=== PATIENT | female | born 1965 | race Caucasian/White ===

== ENCOUNTER 2018-05-07 17:09 | Inpatient (IN) ==
[2018-05-07] MEDS ORDERED: Acetaminophen 325 MG Tablet PO ONE (18:23)
[2018-05-07] MEDS ORDERED: Sod Chloride 0.9% Inj 800 ML IV.SIG SCH (18:30)
[2018-05-07] MEDS ORDERED: Sod Chloride 0.9% Inj 1,000 ML IV.SIG SCH (18:30)
[2018-05-07] MEDS ORDERED: Vancomycin Inj 1,150 MG in Sodium Chlor 0.9% Inj 250 ML IV.SIG STA (18:31)
[2018-05-07] MEDS ORDERED: Dexamethasone Inj 20 MG/5 ML Vial IV.PUSH STA (18:31)
[2018-05-07 19:10] LABS: Baso # (Auto) 0.1 th/mm3 (0.0-0.2); Baso % (Auto) 0.5 % (0.0-2.0); Eos # (Auto) 0.1 th/mm3 (0.0-0.4); Eos % (Auto) 0.7 % (0.0-4.0); Hematocrit 34.1 % (35.0-46.0); Hemoglobin 11.4 gm/dL (11.6-15.3); Lymph % (Auto) 16.8 % (9.0-44.0); Mean Corpuscular HGB Conc 33.5 % (32.0-36.0); Mean Corpuscular Volume 95.7 fL (80.0-100.0); Mono # (Auto) 1.9 th/mm3 (0.0-0.9); Mono % (Auto) 10.7 % (0.0-8.0); Neut # (Auto) 12.7 th/mm3 (1.8-7.7); Neut % (Auto) 71.3 % (16.0-70.0); Platelet Count 387 th/mm3 (150-450); Red Blood Count 3.57 mil/mm3 (4.00-5.30); Red Cell Distribution Width 12.6 % (11.6-17.2); White Blood Count 17.8 th/mm3 (4.0-11.0)
[2018-05-07 19:23] LABS: Alanine Aminotransferase 15 U/L (10-53); Albumin 3.1 g/dL (3.4-5.0); Anion Gap 10 meq/L (5-15); Aspartate Aminotransferase 17 U/L (15-37); Blood Urea Nitrogen 4 mg/dL (7-18); Calcium 9.4 mg/dL (8.5-10.1); Carbon Dioxide 25.3 meq/L (21.0-32.0); Chloride 101 meq/L (98-107); Glomerular Filtration Rate Greater Than 89 mL/min (>89); Glucose,Random 93 mg/dL (74-106); Potassium 4.6 meq/L (3.5-5.1); Sodium 136 meq/L (136-145)
[2018-05-07 19:30] LABS: Activated Partial Thrombo Time 25.4 sec (24.3-30.1); Prothrombin Time 10.6 sec (9.8-11.6)
[2018-05-07 19:32] LABS: Alkaline Phosphatase 67 U/L (45-117); Total Protein 7.1 g/dL (6.4-8.2)
--- NOTE | 2018-05-07 19:53 | XR ---
EXAM DATE: 05/07/2018 7:49 PM EDT AGE/SEX: 53 years / Female INDICATIONS: Cardiac disease. CLINICAL DATA: This is the patient's initial encounter. Patient reports that signs and symptoms have been present for 1 day and indicates a pain score of 0/10. MEDICAL/SURGICAL HISTORY: None. None. COMPARISON: No prior exams available for comparison. FINDINGS: A single AP view of the chest demonstrates the lungs to be symmetrically aerated without evidence of mass, infiltrate or effusion. The cardiomediastinal contours are unremarkable. Osseous structures a re intact. CONCLUSION: Negative examination. Electronically signed by: Francisco Hills MD 05/07/2018 7:52 PM EDT
--- NOTE | 2018-05-07 20:34 | CT ---
EXAM DATE: 05/07/2018 8:28 PM EDT AGE/SEX: 53 years / Female INDICATIONS: Altered mental status, having hallucinations. CLINICAL DATA: This is the patient's initial encounter. Patient reports that signs and symptoms have been present for 1 day and indicates a pain score of 0/10. MEDICAL/SURGICAL HISTORY: None. None. RADIATION DOSE: 56.35 CTDI (mGy) COMPARISON: No prior exams available for comparison. TECHNIQUE: Axial images of the head were acquired without contrast and after intravenous administrat ion of 70 ml Omnipaque 350 (iohexol) nonionic water-soluble contrast as a single exam dose. Using automated exposure control and adjustment of the mA and/or kV according to patient size, radiation do se was kept as low as reasonably achievable to obtain optimal diagnostic quality images. DICOM forma t image data is available electronically for review and comparison. FINDINGS: Cerebrum: The ventricles are normal for age. No evidence of midline shift, mass lesion, hemorrhage or acute infarction. No extraaxial fluid collections are seen. Posterior Fossa: Focal decreased attenuation involving the right cerebellar hemisphere is consistent with probable cerebellar infarct. The brainstem is intact. The 4th ventricle is midline. The cereb ellopontine angle is unremarkable. Extracranial: The visualized portion of the orbits is intact. Skull: The calvaria is intact. No evidence of skull fracture. Post Contrast: No abnormal areas of parenchymal or dural enhancement. No evidence of blood-brain ba rrier breakdown. CONCLUSION: 1. Focal decreased attenuation involving the right cerebellar hemisphere is consistent with probable cerebellar infarct. 2. No acute infarct, acute hemorrhage, midline shift or extra-axial fluid collections. Electronically signed by: Francisco Hills MD 05/07/2018 8:33 PM EDT
[2018-05-07] MEDS ORDERED: SODIUM CHLOR 0.9% IV.SIG ONE (20:50)
[2018-05-07] MEDS ORDERED: ACYCLOVIR IV.SIG ONE (20:50)
--- NOTE | 2018-05-07 20:54 | ED ---
HPI General Chief Complaint: Psychiatric Symptoms Stated Complaint: Psych eval Time Seen by Provider: 05/07/18 18:01 Source: patient, family and other Mode of arrival: ambulatory Limitations: altered mental status History of Present Illness HPI narrative: Patient is a 53-year-old female, previously healthy who presents with complaint of acute psychosis. Family states that for approximately the last week she has not been herself and has been acting manic. She was admitted to an outside hospital where she had a noncontrast CT of her head that was unremarkable and blood work that showed a white blood cell count of 16. Family states that she was discharged home and told to come here to be seen by psychiatry. Family is adamant that she does not have any previous psychiatric history other than depression and anxiety. She has not had any over-the- counter cold medicines nor other herbal supplements. Patient denies any pain or discomfort. complaint: altered mental status Onset (ago): day(s) Timing confirmed by: spouse Severity: moderate Consistency of symptoms: getting worse Associated symptoms: denies other symptoms Related Data Home Medications Medication Instructions Recorded Confirmed alprazolam [Xanax] 1 mg PO BID 05/07/18 05/07/18 lactulose 10 g PO QID 05/07/18 05/07/18 risperidone 0.25 mg PO BID 05/07/18 05/07/18 Allergies Allergy/AdvReac Type Severity Reaction Status Date / Time No Known Allergies Allergy Unverified 05/07/18 18:13 Review of Systems ROS: all other systems reviewed are negative [facility] Social History Social History Recent Travel in [facility] within the Last 8 Weeks: No Recent Out of Country Travel within the Last 8 Weeks: No Exam Narrative Exam Narrative: GENERAL: Middle-aged female singing "Amazing Ronel" loudly in the room SKIN: Focused skin assessment warm/dry. No rashes. HEAD: Atraumatic. Normocephalic. EYES: Pupils equal and round. No scleral icterus. No injection or drainage. ENT: No nasal bleeding or discharge. Mucous membranes pink and moist. NECK: Trachea midline. No JVD. CARDIOVASCULAR: Tachycardic. No murmur appreciated. Intact and equal peripheral pulses RESPIRATORY: No accessory muscle use. Clear to auscultation. Breath sounds equal bilaterally. GASTROINTESTINAL: Abdomen soft, non-tender, nondistended. Hepatic and splenic margins not palpable. MUSCULOSKELETAL: No obvious deformities. No clubbing. No cyanosis. No edema. NEUROLOGICAL: Awake and alert but confused. No obvious cranial nerve deficits. Moving all 4 extremities well. Generalized tremor. Normal speech. PSYCHIATRIC: Anxious and altered, intermittently agitated Course Initial Documented Vital Signs Temperature 101.1 F H 05/07/18 17:12 Pulse Rate 126 H 05/07/18 17:12 Respiratory Rate 18 05/07/18 17:12 Blood Pressure 125/89 05/07/18 17:12 Pulse Oximetry 96 05/07/18 17:12 Last Documented Vital Signs Temperature 101.1 F H 05/07/18 17:12 Pulse Rate 90 05/07/18 20:28 Respiratory Rate 18 05/07/18 18:15 Blood Pressure 164/74 H 05/07/18 18:15 Pulse Oximetry 97 05/07/18 20:28 Medical Decision Making MDM Narrative Medical decision making narrative: Patient is a 53-year-old female who presents with complaint of acute psychosis. She is tachycardic and febrile on arrival at which time sepsis bundle was initiated and empiric antibiotics to cover for meningo-encephalitis were given. She was given Ativan after which her tremor improved. Labs revealed a leukocytosis and slightly elevated lactate. CT of the head shows a cerebellar lesion with another possible lesion in the fronto- parietal region. As she had lesions on her CT, LP was not done in the ED. I spoke with Dr Malik, etcher [employer] fabricating supervisor, whom agreed to admission and stated he would perform an LP in addition to continuing her workup and management. Medical Screen Exam Complete: Yes Emergency Medical Condition: Yes Differential Diagnosis Differential Diagnosis: Differential diagnosis includes but is not limited to encephalitis, urinary tract infection, toxic ingestion. Medical Records Medical records reviewed: Yes I reviewed the patient's medical records. Lab Data Lab results reviewed: Yes I reviewed the patient's lab results. Lab results narrative: Labs remarkable for leukocytosis and slightly elevated lactate. Result diagrams: 05/07/18 18:48 05/07/18 18:48 Lab Results 05/07/18 05/07/18 05/07/18 Range/Units 18:00 18:48 18:48 WBC (4.0-11.0) th/mm3 RBC (4.00-5.30) mil/mm3 Hgb (11.6-15.3) gm/dL Hct (35.0-46.0) % MCV (80.0-100.0) fL MCH (27.0-34.0) pg MCHC (32.0-36.0) % RDW (11.6-17.2) % Plt Count (150-450) th/mm3 MPV (7.0-11.0) fL Neut % (Auto) (16.0-70.0) % Lymph % (Auto) (9.0-44.0) % [place] % (Auto) (0.0-8.0) % Eos % (Auto) (0.0-4.0) % Baso % (Auto) (0.0-2.0) % Neut # (Auto) (1.8-7.7) th/mm3 Lymph # (Auto) (1.0-4.8) th/mm3 [place] # (Auto) (0.0-0.9) th/mm3 Eos # (Auto) (0.0-0.4) th/mm3 Baso # (Auto) (0.0-0.2) th/mm3 WBC Differential Differential Comment PT 10.6 (9.8-11.6) sec INR 1.0 Ratio APTT 25.4 (24.3-30.1) sec Sodium (136-145) meq/L Potassium (3.5-5.1) meq/L Chloride (98-107) meq/L Carbon Dioxide (21.0-32.0) meq/L Anion Gap (5-15) meq/L BUN (7-18) mg/dL Creatinine (0.50-1.00) mg/dL Estimated GFR (>89) mL/min Random Glucose (74-106) mg/dL Lactic Acid 2.5 H (0.4-2.0) mmol/L Calcium (8.5-10.1) mg/dL Total Bilirubin (0.2-1.0) mg/dL AST (15-37) U/L ALT (10-53) U/L Alkaline Phosphatase (45-117) U/L Ammonia (11-32) mcmol/L Troponin I Cancelled Total Protein (6.4-8.2) g/dL Albumin (3.4-5.0) g/dL Vitamin B12 (193-986) pg/mL Folate (3.1-17.5) ng/mL TSH Cancelled Urine Color (Yellw/Straw) Urine Clarity (Clear) Urine pH (5.0-8.5) Ur Specific [place] (1.002-1.035) Urine Protein (Neg-Trace) mg/dL Urine Glucose (UA) (Negative) mg/dL Urine Ketones (Negative) mg/dL Urine Occult Blood (Negative) Urine Nitrate (Negative) Urine Bilirubin (Negative) Urine Urobilinogen (Less than 2) mg/dL Ur Leukocyte Esterase (Negative) Urine RBC (0-3) /hpf Urine WBC (0-5) /hpf Micro UA Comment Ur Microscopic Review Urine Culture Comments Salicylates (2.8-20.0) mg/dL Serum Alcohol Cancelled 05/07/18 05/07/18 05/07/18 Range/Units 18:48 18:48 18:48 WBC 17.8 H (4.0-11.0) th/mm3 RBC 3.57 L (4.00-5.30) mil/mm3 Hgb 11.4 L (11.6-15.3) gm/dL Hct 34.1 L (35.0-46.0) % MCV 95.7 (80.0-100.0) fL MCH 32.0 (27.0-34.0) pg MCHC 33.5 (32.0-36.0) % RDW 12.6 (11.6-17.2) % Plt Count 387 (150-450) th/mm3 MPV 7.0 (7.0-11.0) fL Neut % (Auto) 71.3 H (16.0-70.0) % Lymph % (Auto) 16.8 (9.0-44.0) % [place] % (Auto) 10.7 H (0.0-8.0) % Eos % (Auto) 0.7 (0.0-4.0) % Baso % (Auto) 0.5 (0.0-2.0) % Neut # (Auto) 12.7 H (1.8-7.7) th/mm3 Lymph # (Auto) 3.0 (1.0-4.8) th/mm3 [place] # (Auto) 1.9 H (0.0-0.9) th/mm3 Eos # (Auto) 0.1 (0.0-0.4) th/mm3 Baso # (Auto) 0.1 (0.0-0.2) th/mm3 WBC Differential . Differential Comment Auto diff final PT (9.8-11.6) sec INR Ratio APTT (24.3-30.1) sec Sodium (136-145) meq/L Potassium (3.5-5.1) meq/L Chloride (98-107) meq/L Carbon Dioxide (21.0-32.0) meq/L Anion Gap (5-15) meq/L BUN (7-18) mg/dL Creatinine (0.50-1.00) mg/dL Estimated GFR (>89) mL/min Random Glucose (74-106) mg/dL Lactic Acid (0.4-2.0) mmol/L Calcium (8.5-10.1) mg/dL Total Bilirubin (0.2-1.0) mg/dL AST (15-37) U/L ALT (10-53) U/L Alkaline Phosphatase (45-117) U/L Ammonia 17 (11-32) mcmol/L Troponin I Total Protein (6.4-8.2) g/dL Albumin (3.4-5.0) g/dL Vitamin B12 (193-986) pg/mL Folate (3.1-17.5) ng/mL TSH Urine Color (Yellw/Straw) Urine Clarity (Clear) Urine pH (5.0-8.5) Ur Specific [place] (1.002-1.035) Urine Protein (Neg-Trace) mg/dL Urine Glucose (UA) (Negative) mg/dL Urine Ketones (Negative) mg/dL Urine Occult Blood (Negative) Urine Nitrate (Negative) Urine Bilirubin (Negative) Urine Urobilinogen (Less than 2) mg/dL Ur Leukocyte Esterase (Negative) Urine RBC (0-3) /hpf Urine WBC (0-5) /hpf Micro UA Comment Ur Microscopic Review Urine Culture Comments Salicylates Less than 1.7 L (2.8-20.0) mg/dL Serum Alcohol 05/07/18 05/07/18 05/07/18 Range/Units 18:48 18:48 21:22 WBC (4.0-11.0) th/mm3 RBC (4.00-5.30) mil/mm3 Hgb (11.6-15.3) gm/dL Hct (35.0-46.0) % MCV (80.0-100.0) fL MCH (27.0-34.0) pg MCHC (32.0-36.0) % RDW (11.6-17.2) % Plt Count (150-450) th/mm3 MPV (7.0-11.0) fL Neut % (Auto) (16.0-70.0) % Lymph % (Auto) (9.0-44.0) % [place] % (Auto) (0.0-8.0) % Eos % (Auto) (0.0-4.0) % Baso % (Auto) (0.0-2.0) % Neut # (Auto) (1.8-7.7) th/mm3 Lymph # (Auto) (1.0-4.8) th/mm3 [place] # (Auto) (0.0-0.9) th/mm3 Eos # (Auto) (0.0-0.4) th/mm3 Baso # (Auto) (0.0-0.2) th/mm3 WBC Differential Differential Comment PT (9.8-11.6) sec INR Ratio APTT (24.3-30.1) sec Sodium 136 (136-145) meq/L Potassium 4.6 (3.5-5.1) meq/L Chloride 101 (98-107) meq/L Carbon Dioxide 25.3 (21.0-32.0) meq/L Anion Gap 10 (5-15) meq/L BUN 4 L (7-18) mg/dL Creatinine 0.43 L (0.50-1.00) mg/dL Estimated GFR Greater than 89 (>89) mL/min Random Glucose 93 (74-106) mg/dL Lactic Acid (0.4-2.0) mmol/L Calcium 9.4 (8.5-10.1) mg/dL Total Bilirubin 0.3 (0.2-1.0) mg/dL AST 17 (15-37) U/L ALT 15 (10-53) U/L Alkaline Phosphatase 67 (45-117) U/L Ammonia (11-32) mcmol/L Troponin I Less than 0.02 L Total Protein 7.1 (6.4-8.2) g/dL Albumin 3.1 L (3.4-5.0) g/dL Vitamin B12 239 (193-986) pg/mL Folate 15.4 (3.1-17.5) ng/mL TSH 1.700 Urine Color Yellow (Yellw/Straw) Urine Clarity Clear (Clear) Urine pH 6.0 (5.0-8.5) Ur Specific [place] Greater than 1.060 H (1.002-1.035) Urine Protein Negative (Neg-Trace) mg/dL Urine Glucose (UA) Negative (Negative) mg/dL Urine Ketones Negative (Negative) mg/dL Urine Occult Blood Negative (Negative) Urine Nitrate Negative (Negative) Urine Bilirubin Negative (Negative) Urine Urobilinogen Less than 2 (Less than 2) mg/dL Ur Leukocyte Esterase Negative (Negative) Urine RBC Less than 1 (0-3) /hpf Urine WBC 1 (0-5) /hpf Micro UA Comment Cath-culture not ind Ur Microscopic Review Not Reportable Urine Culture Comments Cath-cult not ind Salicylates (2.8-20.0) mg/dL Serum Alcohol Less than 3 05/07/18 Range/Units 22:09 WBC (4.0-11.0) th/mm3 RBC (4.00-5.30) mil/mm3 Hgb (11.6-15.3) gm/dL Hct (35.0-46.0) % MCV (80.0-100.0) fL MCH (27.0-34.0) pg MCHC (32.0-36.0) % RDW (11.6-17.2) % Plt Count (150-450) th/mm3 MPV (7.0-11.0) fL Neut % (Auto) (16.0-70.0) % Lymph % (Auto) (9.0-44.0) % [place] % (Auto) (0.0-8.0) % Eos % (Auto) (0.0-4.0) % Baso % (Auto) (0.0-2.0) % Neut # (Auto) (1.8-7.7) th/mm3 Lymph # (Auto) (1.0-4.8) th/mm3 [place] # (Auto) (0.0-0.9) th/mm3 Eos # (Auto) (0.0-0.4) th/mm3 Baso # (Auto) (0.0-0.2) th/mm3 WBC Differential Differential Comment PT (9.8-11.6) sec INR Ratio APTT (24.3-30.1) sec Sodium (136-145) meq/L Potassium (3.5-5.1) meq/L Chloride (98-107) meq/L Carbon Dioxide (21.0-32.0) meq/L Anion Gap (5-15) meq/L BUN (7-18) mg/dL Creatinine (0.50-1.00) mg/dL Estimated GFR (>89) mL/min Random Glucose (74-106) mg/dL Lactic Acid 0.5 (0.4-2.0) mmol/L Calcium (8.5-10.1) mg/dL Total Bilirubin (0.2-1.0) mg/dL AST (15-37) U/L ALT (10-53) U/L Alkaline Phosphatase (45-117) U/L Ammonia (11-32) mcmol/L Troponin I Total Protein (6.4-8.2) g/dL Albumin (3.4-5.0) g/dL Vitamin B12 (193-986) pg/mL Folate (3.1-17.5) ng/mL TSH Urine Color (Yellw/Straw) Urine Clarity (Clear) Urine pH (5.0-8.5) Ur Specific [place] (1.002-1.035) Urine Protein (Neg-Trace) mg/dL Urine Glucose (UA) (Negative) mg/dL Urine Ketones (Negative) mg/dL Urine Occult Blood (Negative) Urine Nitrate (Negative) Urine Bilirubin (Negative) Urine Urobilinogen (Less than 2) mg/dL Ur Leukocyte Esterase (Negative) Urine RBC (0-3) /hpf Urine WBC (0-5) /hpf Micro UA Comment Ur Microscopic Review Urine Culture Comments Salicylates (2.8-20.0) mg/dL Serum Alcohol Imaging Data Attestation: I personally reviewed and interpreted this imaging study as follows : My impression: Cerebellar lesion present. Radiologist's impression: Chest X-Ray 05/07/18 18:18 CONCLUSION: Negative examination. Head CT 05/07/18 18:18 CONCLUSION: 1. Focal decreased attenuation involving the right cerebellar hemisphere is consistent with probable cerebellar infarct. 2. No acute infarct, acute hemorrhage, midline shift or extra-axial fluid collections. Discharge Plan Discharge Disposition Patient Disposition: 30 Still Patient Discharge Condition Condition: Stable Discharge Details Diagnosis: Acute alteration in mental status, Sepsis Physicians Team ED Provider: Nenita Stanton Primary Care Provider: UNKNOWN, Rxs /Orders / Referrals /Forms Prescriptions: No Action risperidone 0.25 mg Tablet 0.25 mg PO BID RF: 0 lactulose 10 gram/15 mL Solution 10 g PO QID RF: 0 alprazolam [Xanax] 1 mg Tablet 1 mg PO BID RF: 0 Discharge Interventions Interventions: Vital Signs Last Done: 05/07/18 18:15 Status ED Status: With Doctor
[2018-05-07] MEDS ORDERED: Magnesium Sulfate Inj 2 GM in Sodium Chlor 0.9% Inj 96 ML IV.SIG PRN (21:31)
[2018-05-07] MEDS ORDERED: Potassium Phosphate 500 MG Soluble Tablet PO PRN ×2 (21:31)
[2018-05-07] MEDS ORDERED: Sodium Phosphate Inj 30 MMOL in Sodium Chlor 0.9% Inj 250 ML IV.SIG PRN (21:31)
[2018-05-07] MEDS ORDERED: Potassium Phosphate Inj 30 MMOL in Sodium Chlor 0.9% Inj 250 ML IV.SIG PRN (21:31)
[2018-05-07] MEDS ORDERED: Potassium Chloride 25 MEQ Effervescent Tablet PO PRN (21:31)
[2018-05-07] MEDS ORDERED: Bisacodyl 10 MG Supp RECTAL PRN (21:31)
[2018-05-07] MEDS ORDERED: Magnesium Sulfate Inj 4 GM in Sodium Chlor 0.9% Inj 92 ML IV.SIG PRN (21:31)
[2018-05-07] MEDS ORDERED: Potassium Chlor 40 mEq Premix 40 MEQ/100 ML PIGGYBACK IV.SIG PRN ×2 (21:31)
[2018-05-07] MEDS ORDERED: Magnesium Oxide 400 MG Tablet PO PRN (21:31)
[2018-05-07] MEDS ORDERED: Potassium Chlor 20 mEq Premix 20 MEQ/100 ML PIGGYBACK IV.SIG PRN ×2 (21:31)
[2018-05-07] MEDS ORDERED: Sod Chloride 0.9% Inj 1,000 ML IV.CONT SCH (21:45)
[2018-05-07 22:19] LABS: Bilirubin,Urine Negative (Negative); Clarity,Urine Clear (Clear); Color,Urine Yellow (Yellw/Straw); Glucose,Urine (UA) Negative (Negative); Leukocyte Esterase,Urine Negative (Negative); Nitrite,Urine Negative (Negative)
[2018-05-07 22:46] LABS: Folate 15.4 ng/mL (3.1-17.5)
[2018-05-07] MEDS ORDERED: Gadobutrol PF 7.5 MMOL/7.5 ML Vial (for RAD) IV.SIG ONE (23:05)
--- NOTE | 2018-05-07 23:37 | P.HPCC ---
History of Present Illness Service: Critical Care Medicine Primary Care Physician: UNKNOWN Chief Complaint: altered mentation History of Present Illness: This is a 53-year-old female who has a past medical history of mild depression for which she took Wellbutrin and chronic daily marijuana use. She presents with approximately 2 weeks of sudden onset acute altered mentation, delusional thinking. Patient is very acutely altered and a reliable history is not obtainable from her. Her and daughter are at bedside and have been taking care of her over the last 2 weeks and have a very detailed history of present illness. According to her family, the patient has not had any changes to her medical history, has been healthy and otherwise active. They do state that she had EtOH dependence but has been sober for 10 years now. They state that approximately 2 weeks ago she came home from an AA meeting and suddenly decided that she would stop smoking marijuana and tobacco. At the same time, she began to have delusional thoughts, primarily of a confucianism nature. She states things like "the devil is in my mouth ". According to her family, she has been stating things like her neighbors of the devil. She has significant echolalia and is singing song lyrics, all of which have confucianism references. Family has also noticed that she has not slept for days on end, and goes routinely 36 hours without sleep, again over the last 2 weeks. She was recently hospitalized last week and outside hospital for dehydration and at that time outside hospital CAT scan of the head was negative for acute illness. The family states they diagnosed her with an acute onset psychiatric illness, started on risperidone, and suggests she come to [facility] for admission to an inpatient psychiatric unit. The family has lab reports from outside hospital suggesting that she had a elevated white count and a fever at that time. In our emergency department, she also has a white count of 16,000 and she is febrile to 38.4C. Tox screen is negative. CT head at our facility demonstrates small hypodensity in the right cerebellum. MRI is negative except for a small widening of the cerebellar folds in the right cerebellum. Systems from the patient is essentially unobtainable due to her severe altered mentation. The patient has not had any international travel in the last 6-12 months. She has had small 2-3 day trips out of the area to the [place], [place], and most recently 3 days in [place] approximately a week ago. No contact with wild life. No hunting trips. [place] is significant amount of mosquitoes this time of year. In addition, the states that [place], although the patient does not have any direct contact with the horses. The patient's family history is only positive for CVA: Her grandmother at the age of 89, and a sister at the age of 60. There is no family history of mental illness. She does have a sister who of drug overdose in her 50s. No one in her family is ever been hospitalized for mental illness. She is not of Mediterranean descent. She is of [place] descent. She has no high risk sexual behaviors. She has been monogamous with her for 15 years. She has never used intravenous drugs. No tattoos. Inpatient Certification: I certify that the inpatient services were ordered in accordance with Medicare regulations governing the order. This includes certification that hospital inpatient services are reasonable and necessary and in the case of services not specified as inpatient-only under 42 CFR 419.22(n), that they are appropriately provided as inpatient services in accordance to with the 2-midnight benchmark under 43 CFR 412.3(e) Estimated Total Length of Stay (Days): 7 Plans for Post Hospital Care: Not yet determined Review of Systems unobtainable due to mental condition PMFSH - History History Provided By: Family Member - Medical / Surgical Hx Neg / Unobtainable Medical Problems Denied: Unable to Obtain Surgical History: Unable to Obtain - Social History I have reviewed the patient's Social History: Yes - Travel History Recent Travel in the [place] Within the Last 8 Weeks: No Recent Travel Out of the Country Within the Last 8 Weeks: No Medications and Allergies Active Medications: Active Medications Albuterol (Duoneb Neb (Prn)) 1 ampul NEB Q2HR NEB PRN PRN Reason: WHEEZING Bisacodyl (Dulcolax Supp) 10 mg RECTAL DAILY PRN PRN Reason: if no BM in last 24h Chlorhexidine Gluconate (Chlorhexidine 2% Cloth) 3 pack TOPICAL DAILY@0400 PRN PRN Reason: Extra cloth needed Stop: 05/13/18 03:59 Chlorhexidine Gluconate (Chlorhexidine 2% Cloth) 3 pack TOPICAL DAILY@0400 EUGENIA Stop: 05/13/18 03:59 Dextrose (D50w Syringe) 50 ml IV.PUSH UNSCH PRN PRN Reason: PER HYPOGLYCEMIA PROTOCOL Famotidine (Pepcid) 20 mg PO BID EUGENIA Glucagon (Glucagon Inj) 1 mg IM ONCE PRN PRN Reason: blood sugar < 60, no iv access Sodium Chloride (Ns Inj) 800 mls @ 0 mls/hr IV.SIG .Q0M EUGENIA Last Infusion: 05/07/18 20:37 Dose: Infused Sodium Chloride (Ns Inj) 1,000 mls @ 0 mls/hr IV.SIG BOLUS EUGENIA Last Admin: 05/07/18 21:40 Dose: 1,000 mls/hr Magnesium Sulfate Inj 4 gm/ (Sodium Chloride) 100 mls @ 50 mls/hr IV.SIG UNSCH PRN PRN Reason: For Magnesium 0.9 - 1.1 mg/dL Magnesium Sulfate Inj 2 gm/ (Sodium Chloride) 100 mls @ 50 mls/hr IV.SIG UNSCH PRN PRN Reason: For Magnesium 1.2 - 1.6 mg/dL Sodium Chloride (Ns Inj) 1,000 mls @ 84 mls/hr IV.CONT .[id number] [facility] Potassium Chloride (Kcl 20 Meq Premix Inj) 20 meq in 100 mls @ 50 mls/hr IV.SIG Q2H PRN PRN Reason: For Potassium 3.3 - 3.5 mEq/L Potassium Chloride (Kcl 40 Meq Premix Inj) 40 meq in 100 mls @ 25 mls/hr IV.SIG UNSCH PRN PRN Reason: For Potassium 3.3 - 3.5 mEq/L Potassium Chloride (Kcl 20 Meq Premix Inj) 20 meq in 100 mls @ 50 mls/hr IV.SIG Q2H PRN PRN Reason: For Potassium 2.8 - 3.2 mEq/L Potassium Phosphate 30 mmol/ (Sodium Chloride) 260 mls @ 42 mls/hr IV.SIG UNSCH PRN PRN Reason: SEE LABEL COMMENTS Potassium Chloride (Kcl 40 Meq Premix Inj) 40 meq in 100 mls @ 25 mls/hr IV.SIG Q2H PRN PRN Reason: For Potassium 2.8 - 3.2 mEq/L Sodium Phosphate 30 mmol/ (Sodium Chloride) 260 mls @ 42 mls/hr IV.SIG UNSCH PRN PRN Reason: For Phosphorus < 2.5 mg/dL Insulin Human Regular (Novolin R Inj) 1 units SQ Q6HR EUGENIA; Protocol Lactulose (Lactulose Liq) 30 ml PO BID EUGENIA Magnesium Oxide (Mag-Ox) 800 mg PO UNSCH PRN PRN Reason: For Magnesium 1.2 - 1.6 mg/dL Ondansetron HCl (Zofran Inj) 4 mg IV.PUSH Q6H PRN PRN Reason: NAUSEA OR VOMITING Polyethylene Glycol (Miralax) 17 gm PO BID EUGENIA Potassium Bicarb/Potassium Chloride (K-Lyte Cl Eff) 50 meq PO UNSCH PRN PRN Reason: For Potassium 3.3 - 3.5 mEq/L Potassium Phosphate (K-Phos Original) 2,000 mg PO Q4H PRN PRN Reason: Phosphorus Less Than 2.5 mg/dL Potassium Phosphate (K-Phos Original) 2,000 mg PO UNSCH PRN PRN Reason: SEE LABEL COMMENTS Senna/Docusate Sodium (Catrachita-Colace) 1 tab PO BID [facility] Sodium Chloride (Ns Flush) 2 ml IV.FLUSH PRN PRN PRN Reason: FLUSH AFTER USING IV ACCESS Sodium Chloride (Ns Flush) 2 ml IV.FLUSH UNSCH PRN PRN Reason: FLUSH AFTER USING IV ACCESS Allergies Allergy/AdvReac Type Severity Reaction Status Date / Time No Known Allergies Allergy Unverified 05/07/18 18:13 Home Medications Medication Instructions Recorded Confirmed Type alprazolam [Xanax] 1 mg PO BID 05/07/18 05/07/18 History lactulose 10 g PO QID 05/07/18 05/07/18 History risperidone 0.25 mg PO BID 05/07/18 05/07/18 History Results - Labs CBC & Chem 7: 05/07/18 18:48 05/07/18 18:48 Labs: Short CBC 05/07/18 Range/Units 18:48 WBC 17.8 H (4.0-11.0) th/mm3 Hgb 11.4 L (11.6-15.3) gm/dL Hct 34.1 L (35.0-46.0) % Plt Count 387 (150-450) th/mm3 BMP 05/07/18 18:48 Sodium 136 Potassium 4.6 Chloride 101 Carbon Dioxide 25.3 BUN 4 L Creatinine 0.43 L Calcium 9.4 Cardiac Enzymes 05/07/18 05/07/18 Range/Units 18:48 18:48 Troponin I Cancelled Less than 0.02 L Liver Function 05/07/18 Range/Units 18:48 Total Bilirubin 0.3 (0.2-1.0) mg/dL AST 17 (15-37) U/L ALT 15 (10-53) U/L Alkaline Phosphatase 67 (45-117) U/L Albumin 3.1 L (3.4-5.0) g/dL Urine 05/07/18 Range/Units 21:22 Urine Color Yellow (Yellw/Straw) Urine Clarity Clear (Clear) Urine pH 6.0 (5.0-8.5) Ur Specific [place] Greater than 1.060 H (1.002-1.035) Urine Protein Negative (Neg-Trace) mg/dL Urine Glucose (UA) Negative (Negative) mg/dL - Imaging Impressions Chest X-Ray 05/07/18 18:18 CONCLUSION: Negative examination. Head CT 05/07/18 18:18 CONCLUSION: 1. Focal decreased attenuation involving the right cerebellar hemisphere is consistent with probable cerebellar infarct. 2. No acute infarct, acute hemorrhage, midline shift or extra-axial fluid collections. Exam Vital signs: Vital Signs 05/07/18 17:12 05/07/18 18:15 05/07/18 20:28 Temperature 38.4 C H Pulse Rate 126 H 99 H 90 Respiratory Rate 18 18 Blood Pressure 125/89 164/74 H Pulse Oximetry 96 97 97 05/07/18 23:34 Temperature Pulse Rate 97 H Respiratory Rate 18 Blood Pressure 120/77 Pulse Oximetry Intake & Output 05/07/18 05/07/18 05/08/18 06:59 18:59 06:59 Intake Total 1000 / 1000 Balance 1000 / 1000 Weight 46.72 kg Intake: IV 1000 / 1000 Ampicillin Inj 2,000 MG In NS 100 / 100 Inj 100 ML @ 400 mls/hr IV.SIG ONCE ONE Rx#:[id number] NS Inj 800 ML @ Wide Open IV. 800 / 800 SIG .Q0M [facility] Rx#:[id number] Rocephin Inj 2,000 MG In NS Inj 100 / 100 100 ML @ 200 mls/hr IV.SIG ONCE ONE Rx#:[id number] Narrative: GENERAL: Middle-aged appearing female, lying in bed, at times agitated, altered HEENT: Normocephalic. Atraumatic. Pupils 3 mm, equal, round, reactive, conjugate. Mucous membranes are moist NECK: Trachea is midline. There is no JVD. CHEST: Equal chest rise. Room air. CARDIOVASCULAR: Normal rate, regular rhythm. Sinus. ABDOMEN: Soft, nontender, nondistended. No guarding. MUSCULOSKELETAL: Pulses 2+. No peripheral edema. NEUROLOGICAL: GCS of 14. Patient is awake. She is oriented to person and place. She is CAM -. She has significant delusional thinking, particularly with regard to confucianism themes. She is singing "the devil and down to [place] ". She has significant echolalia. She perseverates over handwashing and wearing gloves. She is moving all 4 extremities. She has musculoskeletal strength 5/5 in all 4 extremities. Sensation is grossly intact. Cranial nerves II through XII are grossly intact. Caprini VTE Risk Assessment Caprini VTE Risk Assessment: Moderate/High Risk (score >= 2) Caprini Risk Assessment Model: Point Value = 1 Point Value = 2 Point Value = 3 Point Value = 5 Age 41-60 Minor surgery BMI > 25 kg/m2 Swollen legs Varicose veins or History of unexplained or recurrent spontaneous Oral contraceptives or hormone replacement Sepsis (< 1 month) Serious lung disease, including pneumonia (< 1 month) Abnormal pulmonary function Acute myocardial infarction Congestive heart failure (< 1 month) History of inflammatory bowel disease Medical patient at bed rest Age 61-74 Arthroscopic surgery Major open surgery (> 45 min) Laparoscopic surgery (> 45 min) Malignancy Confined to bed (> 72 hours) Immobilizing plaster cast Central venous access Age >= 75 History of VTE Family history of VTE Factor V Leiden Prothrombin [id number] Lupus anticoagulant Anticardiolipin antibodies Elevated serum homocysteine Heparin-induced thrombocytopenia Other congenital or acquired thrombophilia Stroke (< 1 month) Elective arthroplasty Hip, pelvis, or leg fracture Acute spinal cord injury (< 1 month) Prophylaxis Regimen: Total Risk Factor Score Risk Level Prophylaxis Regimen 0-1 Low Early ambulation 2 Moderate Order ONE of the following: *Sequential Compression Device (SCD) *Heparin 5000 units SQ BID 3-4 Higher Order ONE of the following medications: *Heparin 5000 units SQ TID *Enoxaparin/Lovenox 40 mg SQ daily (WT < 150 kg, CrCl > 30 mL/min) *Enoxaparin/Lovenox 30 mg SQ daily (WT < 150 kg, CrCl > 10-29 mL/min) *Enoxaparin/Lovenox 30 mg SQ BID (WT < 150 kg, CrCl > 30 mL/min) AND/OR *Sequential Compression Device (SCD) 5 or more Highest Order ONE of the following medications: *Heparin 5000 units SQ TID (Preferred with Epidurals) *Enoxaparin/Lovenox 40 mg SQ daily (WT < 150 kg, CrCl > 30 mL/min) *Enoxaparin/Lovenox 30 mg SQ daily (WT < 150 kg, CrCl > 10-29 mL/min) *Enoxaparin/Lovenox 30 mg SQ BID (WT < 150 kg, CrCl > 30 mL/min) AND *Sequential Compression Device (SCD) Assessment and Plan - Assessment and Plan Plan: Assessment: This is a 53-year-old female with no significant past medical history, and particularly no past medical history suggestive of significant mental illness who presents with a two-week history of acute altered mentation, psychosis, delusional thinking. Clinically this appears together with fever and leukocytosis to be an acute encephalitis. Most common candidates within the differential would be HSV encephalitis, West Nile encephalitis, eastern equine encephalitis, or another viral encephalitis. This does not appear to be an acute bacterial meningitis, although we will cover her empirically and follow -up CSF cultures. Will obtain lumbar puncture and CSF. The patient is also in the right age group and presents in the right time course to have an NMDA receptor encephalitis, and although rare, this would need to be considered in the differential. Given the patient's significant smoking history, paraneoplastic encephalitis from lung cancer is also a rare possibility. The patient is very clearly ill at this time and will need admission to intensive care unit for close monitoring. Highly complex and she may well continue decompensate from a neurologic standpoint. Acute encephalopathy Acute encephalitis Acute psychosis Leukocytosis Fever Agitated Delirium Plan: admit to ICU frequent neuro checks ativan prn for agitation Lumbar puncture vancomycin, rocephin, acyclovir. will add ampicillin if cell count suggests bacterial source. NS mivf strict i/o's advance diet as tolerated EEG daily cbc, bmp Work up: blood cultures: pending CSF cultures: pending CSF cell count: pending CSF Gram stain: pending HSV 1/2: pending VZV: pending HIV: negative Cryptococcus: pending Toxoplasma: pending CSF VDRL: pending anti-NMDA receptor Ab: pending paraneoplastic encephalitis panel: pending MRI: right cerebellar widening of folds, otherwise negative CT brain: small hypotensity right cerebellum EEG: pending enterovirus panel: pending
--- NOTE | 2018-05-07 23:39 | MR ---
EXAM DATE: 05/07/2018 11:23 PM EDT AGE/SEX: 53 years / Female INDICATIONS: Encephalitis. Altered mental status. CLINICAL DATA: This is the patient's initial encounter. Patient reports that signs and symptoms have been present for 1 week and indicates a pain score of 5/10. MEDICAL/SURGICAL HISTORY: None. Tubal ligation. COMPARISON: [facility] [place], [place] HEAD W & W/O CONTRAST, 05/07/2018. . TECHNIQUE: Multiplanar, multisequence examination of the brain was performed without and with 4.50 ml Gadavist (gadobutrol) contrast as a single exam dose. Rapid acquisition sequences were employed due to patient motion. FINDINGS: Cerebrum: The ventricles are normal for age. No evidence of midline shift, mass lesion, hemorrhage or acute infarction. No extraaxial fluid collections are seen. The pituitary gland and suprasellar cistern are normal in configuration. White Matter: No significant signal abnormalities are seen in the white matter. Posterior Fossa: The cerebellum and brainstem are intact. There is widening of the interhemispheric fissure in the right lateral cerebellar hemisphere which correlates with the hypodensity seen on CT s can. This could represent an old infarction or focal atrophy. The 4th ventricle is midline. The cere bellopontine angle is unremarkable. The cerebellar tonsils are normal in position. Diffusion Imaging: No focal areas of restricted diffusion are seen. No evidence of acute infarction . Extracranial: The visualized portions of the orbits and paranasal sinuses are unremarkable. Post Contrast: No abnormal areas of parenchymal or dural enhancement. No evidence of blood-brain ba rrier breakdown. CONCLUSION: 1. No acute findings in the brain. No abnormal areas of contrast enhancement and no evidence of acut e infarction. 2. Focal atrophy in the right cerebellum with widening of the interhemispheric fissure. Electronically signed by: Dewayne Sahni MD 05/07/2018 11:38 PM EDT
[2018-05-08] MEDS ORDERED: Midazolam Inj 5 MG/ML 1 ML Vial ONE ×2 (00:05→00:12)
[2018-05-08] MEDS ORDERED: Vancomycin Consult Pharmacy OTHER PRN (00:39)
--- NOTE | 2018-05-08 01:20 | P.PCN ---
Date of procedure: 05/08/18 Pre-op diagnosis: acute encephalitis Procedure: Lumbar Puncture Diagnosis: Acute encephalitis Indications: Need for CSF studies to confirm acute encephalitis Consent: Obtained from the Anesthesia: 1% lidocaine locally Description of the Procedure: The patient was placed in the supine, right lateral decubitus position. The patient was prepped and draped sterilely. 1% lidocaine was infiltrated subcutaneously. A 20g Quincke needle was inserted into the L3-4 interspace and advanced until CSF was obtained. Opening pressure was obtained. CSF was drained in 4 incremental vials. The needle was removed and a dressing was applied. The patient was returned to the supine position. Instructions were given to remain flat x 2 hours. There were no immediate complications noted. There was minimal EBL. The patient tolerated the procedure well. Opening Pressure: 4 cm water Amount of CSF removed: 10 mL's Findings: Clear CSF I personally performed the procedure.
[2018-05-08 01:27] LABS: Amphetamine Screen,Urine Neg (Neg); Barbiturate Screen,Urine Neg (Neg); Cannabinoid Screen,Urine Pos (Neg); Cocaine Screen,Urine Neg (Neg)
[2018-05-08 01:36] LABS: Opiate Screen,Urine Neg (Neg)
[2018-05-08 02:03] LABS: Total Protein,CSF 33.9 mg/dL (15.0-45.0)
[2018-05-08] MEDS ORDERED: Chlorhexidine Gluconate 2% 1 Pack (2 Cloths) TOPICAL PRN (04:00)
[2018-05-08 04:40] LABS: RBC on Tube 1 2 /mm3
[2018-05-08 04:51] LABS: Lymphocytes, CSF 60 %; Monocytes,CSF 40 %; RBC on Tube 4 2 /mm3
[2018-05-08] MEDS: ACYCLOVIR IV.SIG SCH ×3 (04:53→22:03)
[2018-05-08] MEDS: SODIUM CHLOR 0.9% IV.SIG SCH ×3 (04:53→22:03)
[2018-05-08] MEDS: Chlorhexidine Gluconate 2% 1 Pack (2 Cloths) TOPICAL SCH (04:54)
[2018-05-08 05:02] LABS: Neutrophils,CSF 0 %; RBC on Tube 1 2 /mm3
[2018-05-08] MEDS: Heparin - SQ 10,000 UNITS/ML Vial SQ SCH ×3 (06:36→22:04)
[2018-05-08] MEDS: Famotidine 20 MG Tablet PO SCH ×2 (08:59→22:04)
[2018-05-08] MEDS: Senna/Docusate Sodium 8.6/50 MG Tablet PO SCH ×2 (08:59→22:04)
[2018-05-08] MEDS: Polyethylene Glycol 3350 17 GM Packet PO SCH ×2 (08:59→22:04)
--- NOTE | 2018-05-08 10:24 | CT ---
EXAM DATE: 05/08/2018 10:17 AM EDT AGE/SEX: 53 years / Female INDICATIONS: Altered mental status and elevated white blood cell count. Evaluate for metastatic dise ase. CLINICAL DATA: This is the patient's initial encounter. Patient reports that signs and symptoms have been present for 1 day and indicates a pain score of 0/10. MEDICAL/SURGICAL HISTORY: None. None. ORAL CONTRAST: No oral contrast ingested. RADIATION DOSE: 5.83 CTDI (mGy) ; Combined studies COMPARISON: No prior exams available for comparison. TECHNIQUE: Multiple contiguous axial images were obtained through the abdomen and pelvis following b olus infusion of 85 ml Omnipaque 350 (iohexol) nonionic water-soluble contrast as a cumulative dose for multiple exams. No oral contrast ingested. Using automated exposure control and adjustment of t he mA and/or kV according to patient size, radiation dose was kept as low as reasonably achievable to obtain optimal diagnostic quality images. DICOM format image data is available electronically for r eview and comparison. FINDINGS: Lower Lungs: There is atelectasis both within the lingula and the medial aspect of the right middle l obe. Liver: The liver has a homogeneous density without space-occupying lesion. There is no dilation of th e biliary tree. Question small gallstones in the dependent portion of the gallbladder Spleen: Homogeneous density without enlargement. Pancreas: Unremarkable without mass or calcification. Kidneys: Normal in size and shape. No evidence of mass or hydronephrosis. Adrenal Glands: Unremarkable. Aorta: The aorta and proximal iliac vessels are grossly unremarkable without aneurysmal dilation. Bowel/Mesentery: The bowel loops are grossly unremarkable. The cecum and sigmoid colon have a normal configuration. Abdominal Wall: Intact. Retroperitoneum: No evidence of adenopathy in the retrocrural, para-aortic, or deep pelvic regions. Bladder: Contours are smooth. Reproductive Organs: No abnormal masses or calcifications seen. Inguinal: The inguinal region is unremarkable without evidence of adenopathy. Bony Structures: Discogenic sclerosis at L4-5. CONCLUSION: 1. Unremarkable CT scan of the abdomen and pelvis except for atelectasis in both lung bases Electronically signed by: Sagar Najera MD 05/08/2018 10:22 AM EDT
--- NOTE | 2018-05-08 10:34 | CT ---
EXAM DATE: 05/08/2018 10:13 AM EDT AGE/SEX: 53 years / Female INDICATIONS: Altered mental status and elevated white blood cell count. Evaluate for metastatic dise ase. CLINICAL DATA: This is the patient's initial encounter. Patient reports that signs and symptoms have been present for 1 day and indicates a pain score of 0/10. MEDICAL/SURGICAL HISTORY: None. None. RADIATION DOSE: 5.83 CTDI (mGy) ; Combined studies [place] [facility] [place], 05/08/2018. . TECHNIQUE: Multiple contiguous axial images were obtained through the chest during bolus infusion of 85 ml Omnipaque 350 (iohexol) nonionic water-soluble contrast as a cumulative dose for multiple exa ms. Images were obtained in suspended respiration using multiple row detector helical technique. U sing automated exposure control and adjustment of the mA and/or kV according to patient size, radiati on dose was kept as low as reasonably achievable to obtain optimal diagnostic quality images. DICOM format image data is available electronically for review and comparison. FINDINGS: Lungs: There again are areas of consolidation within the lingula and the right middle lobe medially consistent with atelectasis. There is minimal scarring both lung bases. No concerning nodule or spicu lated lesion is identified. Mediastinum: There is good visualization of the great vessels of the middle mediastinum. No evidenc e of mediastinal or hilar adenopathy/mass. Pleurae: No evidence of focal thickening or pleural effusion. Axillae: Unremarkable. Bony Structures: Unremarkable. Miscellaneous: The examination was extended to include the upper abdomen, and both adrenal glands ar e normal in size and configuration. CONCLUSION: 1. Atelectasis in both the lingula and the medial right middle lobe. No concerning infiltrate or mas s. No evidence of metastatic disease Electronically signed by: Sagar Najera MD 05/08/2018 10:32 AM EDT
[2018-05-08 10:39] LABS: Baso % (Auto) 0.1 % (0.0-2.0); Hematocrit 28.5 % (35.0-46.0); Hemoglobin 10.6 gm/dL (11.6-15.3); Lymph % (Auto) 8.5 % (9.0-44.0); Mean Corpuscular Hemoglobin 34.7 pg (27.0-34.0); Mean Corpuscular Volume 93.9 fL (80.0-100.0); Mean Platelet Volume 6.9 fL (7.0-11.0); Mono # (Auto) 0.7 th/mm3 (0.0-0.9); Mono % (Auto) 6.5 % (0.0-8.0); Neut # (Auto) 9.8 th/mm3 (1.8-7.7); Neut % (Auto) 84.9 % (16.0-70.0); Platelet Count 365 th/mm3 (150-450); Red Blood Count 3.04 mil/mm3 (4.00-5.30); Red Cell Distribution Width 12.4 % (11.6-17.2); White Blood Count 11.6 th/mm3 (4.0-11.0)
[2018-05-08 10:59] LABS: Anion Gap 10 meq/L (5-15); Blood Urea Nitrogen 7 mg/dL (7-18); Calcium 8.4 mg/dL (8.5-10.1); Carbon Dioxide 25.5 meq/L (21.0-32.0); Chloride 104 meq/L (98-107); Glomerular Filtration Rate Greater Than 89 mL/min (>89); Glucose,Random 106 mg/dL (74-106); Magnesium 1.9 mg/dL (1.5-2.5); Potassium 3.5 meq/L (3.5-5.1); Sodium 139 meq/L (136-145)
--- NOTE | 2018-05-08 11:25 | P.PNCC ---
Subjective Subjective Remarks/Hospital Course: 05/07: This is a 53-year-old female who has a past medical history of mild depression for which she took Wellbutrin and chronic daily marijuana use. She presents with approximately 2 weeks of sudden onset acute altered mentation, delusional thinking. Patient is very acutely altered and a reliable history is not obtainable from her. Her and daughter are at bedside and have been taking care of her over the last 2 weeks and have a very detailed history of present illness. According to her family, the patient has not had any changes to her medical history, has been healthy and otherwise active. They do state that she had EtOH dependence but has been sober for 10 years now. They state that approximately 2 weeks ago she came home from an AA meeting and suddenly decided that she would stop smoking marijuana and tobacco. At the same time, she began to have delusional thoughts, primarily of a jehovah's witness nature. She states things like "the devil is in my mouth ". According to her family, she has been stating things like her neighbors of the devil. She has significant echolalia and is singing song lyrics, all of which have jehovah's witness references. Family has also noticed that she has not slept for days on end, and goes routinely 36 hours without sleep, again over the last 2 weeks. She was recently hospitalized last week and outside hospital for dehydration and at that time outside hospital CAT scan of the head was negative for acute illness. The family states they diagnosed her with an acute onset psychiatric illness, started on risperidone, and suggests she come to [facility] for admission to an inpatient psychiatric unit. The family has lab reports from outside hospital suggesting that she had a elevated white count and a fever at that time. In our emergency department, she also has a white count of 16,000 and she is febrile to 38.4C. Tox screen is negative. CT head at our facility demonstrates small hypodensity in the right cerebellum. MRI is negative except for a small widening of the cerebellar folds in the right cerebellum. Systems from the patient is essentially unobtainable due to her severe altered mentation. The patient has not had any international travel in the last 6-12 months. She has had small 2-3 day trips out of the area to the [facility], [place], [place], and most recently 3 days in [place] approximately a week ago. No contact with wild life. No hunting trips. [place] and [place] is significant amount of mosquitoes this time of year. In addition, the states that [place], although the patient does not have any direct contact with the horses. The patient's family history is only positive for CVA: Her grandmother at the age of 89, and a sister at the age of 60. There is no family history of mental illness. She does have a sister who of drug overdose in her 50s. No one in her family is ever been hospitalized for mental illness. She is not of Mediterranean descent. She is of [place] descent. She has no high risk sexual behaviors. She has been monogamous with her for 15 years. She has never used intravenous drugs. No tattoos. 05/08: Underwent lumbar puncture yesterday CSF appears unremarkable. She is much more calm today. She did receive some benzodiazepines last night. She can give me some of her history and realizes that she has been having problems with her behavior dealing with anxiety/depression and tells me that before her hospitalization she has not slept for 72 hours. She is requesting medication for anxiety. She appears anxious and at times tearful. She is completely awake and alert and following commands appropriately. Objective Vital Signs / I&O: Vital Signs 05/07/18 17:12 05/07/18 18:15 05/07/18 20:28 Temperature 101.1 F H Pulse Rate 126 H 99 H 90 Respiratory Rate 18 18 Blood Pressure 125/89 164/74 H Pulse Oximetry 96 97 97 05/07/18 23:34 05/08/18 01:00 05/08/18 02:00 Temperature 97.6 F 97.6 F Pulse Rate 97 H 86 72 Respiratory Rate 18 Blood Pressure 120/77 161/85 H 84/51 L Pulse Oximetry 100 100 05/08/18 03:00 05/08/18 04:00 05/08/18 05:00 Temperature 97.7 F 97.7 F 97.6 F Pulse Rate 72 98 H 100 H Respiratory Rate Blood Pressure 122/72 122/80 Pulse Oximetry 100 98 98 05/08/18 06:00 Temperature 97.7 F Pulse Rate 93 H Respiratory Rate Blood Pressure 122/80 Pulse Oximetry 100 Intake & Output 09/03/1705/08/18 05/08/18 18:59 06:59 18:59 Intake Total 1109.3 / 1109.3 2126 Balance 1109.3 / 1109.3 2126 Weight 46.72 kg 47.3 kg Intake: IV 1109.3 / 1109.3 2126 NS Inj 1,000 ML @ 84 mls/hr IV. 650 / 650 CONT .[id number] [facility] Rx#:[id number] Zovirax Inj 465 MG In NS Inj 109.3 / 109.3 110 / 110 100 ML @ 109.3 mls/hr IV.SIG ONCE ONE Rx#:[id number] Ampicillin Inj 2,000 MG In NS 100 / 100 Inj 100 ML @ 400 mls/hr IV.SIG ONCE ONE Rx#:[id number] NS Inj 1,000 ML @ Wide Open IV. 800 / 800 1000 / 1000 SIG BOLUS [facility] Rx#:[id number] Vancomycin Inj 1,150 MG In NS 267 / 267 Inj 250 ML @ 250 mls/hr IV.SIG ONCE STA Rx#:[id number] Rocephin Inj 2,000 MG In NS Inj 100 / 100 100 / 100 100 ML @ 200 mls/hr IV.SIG Q12H [facility] Rx#:[id number] Other: # Voids 3 Weight On Admission 46.7 kg Result Diagrams: 05/08/18 10:15 05/08/18 10:15 Objective Remarks: GENERAL: Middle-aged appearing female, sitting up in bed, at times agitated. HEENT: Normocephalic. Atraumatic. Pupils 3 mm, equal, round, reactive, conjugate. Mucous membranes are moist NECK: Trachea is midline. There is no JVD. CHEST: Equal chest rise. Room air. CARDIOVASCULAR: Normal rate, regular rhythm. Sinus. ABDOMEN: Soft, nontender, nondistended. No guarding. MUSCULOSKELETAL: Pulses 2+. No peripheral edema. NEUROLOGICAL: GCS of 14. Patient is awake. Appears anxious and at times tearful. Speech appears normal though she tends to jump from one topic to another. She is oriented to time, person and place. Following commands, moving all 4 extremities, grossly nonfocal. Assessment and Plan - Assessment and Plan Plan: Assessment: This is a 53-year-old female with no significant past medical history, and particularly no past medical history suggestive of significant mental illness who presents with a two-week history of acute altered mentation, psychosis, delusional thinking. Clinically this appears together with fever and leukocytosis to be an acute encephalitis. Most common candidates within the differential would be HSV encephalitis, West Nile encephalitis, eastern equine encephalitis, or another viral encephalitis. This does not appear to be an acute bacterial meningitis, although we will cover her empirically and follow -up CSF cultures. Will obtain lumbar puncture and CSF. The patient is also in the right age group and presents in the right time course to have an NMDA receptor encephalitis, and although rare, this would need to be considered in the differential. Given the patient's significant smoking history, paraneoplastic encephalitis from lung cancer is also a rare possibility. The patient is very clearly ill at this time and will need admission to intensive care unit for close monitoring. Highly complex and she may well continue decompensate from a neurologic standpoint. Acute encephalopathy Acute encephalitis Acute psychosis Leukocytosis Fever Agitated Delirium Plan: admit to ICU frequent neuro checks ativan prn for agitation vancomycin, rocephin, acyclovir. will add ampicillin if cell count suggests bacterial source. NS mivf strict i/o's advance diet as tolerated EEG daily cbc, bmp Consulted psychiatry. MRI brain does not show any acute infarcts or inflammation and has minimal atrophy left cerebellar hemisphere medially. Work up: blood cultures: pending CSF cultures: pending CSF studies including cell count, protein, glucose, LDH unremarkable HSV 1/2: pending VZV: pending HIV: negative Cryptococcus: pending Toxoplasma: pending CSF VDRL: pending anti-NMDA receptor Ab: pending paraneoplastic encephalitis panel: pending MRI: right cerebellar widening of folds, otherwise negative CT brain: small hypotensity right cerebellum EEG: pending enterovirus panel: pending Patient is otherwise hemodynamically stable. Await psychiatry evaluation. Adding Zyprexa 5 mg now and daily. Ativan as needed. Consult and transfer to hospitalist service for further medical management. Critical care will be available as needed.
[2018-05-08] MEDS: Vancomycin Inj 700 MG in Sodium Chlor 0.9% Inj 250 ML IV.SIG SCH ×2 (14:08→22:03)
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
--- NOTE | 2018-05-08 20:50 | MG ---
cc: Wendy Mejia MD AGE: [age] years old. EEG NUMBER: [id number] REFERRING PHYSICIAN: Dr. Ovi Malik INDICATIONS: In room 1329, awake, drowsy, asleep with photic only. Alert, cooperative. MRI shows focal atrophy in the right cerebellum with widening of the interhemispheric fissures. No acute findings. Admitted with 2 weeks of sudden onset change in mental status, psychosis, tobacco use, marijuana use, depression. MEDICATIONS: Acyclovir, Rocephin, heparin. DESCRIPTION OF RECORD: There are some faster frequency waves of 11 Hz at times, maybe beta frequency, but at other times, there is normal 9 to 9-1/2 Hz frequency. Little bit of myogenic artifact. Talking, not following direction. EKG at times looks sinus. Hyperventilation not done. Photic stimulation with a mild driving response. IMPRESSION: Overall, fairly normal-appearing electroencephalogram. Some faster frequency waves were noted, maybe due to medicine effect, but no epileptiform features. Clinical correlation. Wendy Meija MD DF/sv , 07:15 PM , 07:20 PM
[2018-05-09] MEDS: Chlorhexidine Gluconate 2% 1 Pack (2 Cloths) TOPICAL SCH (04:57)
[2018-05-09] MEDS: SODIUM CHLOR 0.9% IV.SIG SCH ×3 (04:58→23:01)
[2018-05-09] MEDS: ACYCLOVIR IV.SIG SCH ×3 (04:58→23:01)
[2018-05-09] MEDS: Vancomycin Inj 700 MG in Sodium Chlor 0.9% Inj 250 ML IV.SIG SCH ×2 (05:00→13:17)
[2018-05-09] MEDS: Heparin - SQ 10,000 UNITS/ML Vial SQ SCH ×3 (05:01→23:02)
[2018-05-09 08:21] LABS: Baso # (Auto) 0.2 th/mm3 (0.0-0.2); Baso % (Auto) 1.1 % (0.0-2.0); Eos # (Auto) 0.1 th/mm3 (0.0-0.4); Eos % (Auto) 0.8 % (0.0-4.0); Hematocrit 30.6 % (35.0-46.0); Hemoglobin 10.6 gm/dL (11.6-15.3); Lymph # (Auto) 4.4 th/mm3 (1.0-4.8); Lymph % (Auto) 30.9 % (9.0-44.0); Mean Corpuscular HGB Conc 34.5 % (32.0-36.0); Mean Corpuscular Hemoglobin 32.5 pg (27.0-34.0); Mean Corpuscular Volume 94.2 fL (80.0-100.0); Mean Platelet Volume 6.9 fL (7.0-11.0); Mono # (Auto) 1.5 th/mm3 (0.0-0.9); Mono % (Auto) 10.7 % (0.0-8.0); Neut # (Auto) 8.1 th/mm3 (1.8-7.7); Neut % (Auto) 56.5 % (16.0-70.0); Platelet Count 425 th/mm3 (150-450); Red Blood Count 3.25 mil/mm3 (4.00-5.30); Red Cell Distribution Width 12.6 % (11.6-17.2); White Blood Count 14.4 th/mm3 (4.0-11.0)
[2018-05-09 08:49] LABS: Glomerular Filtration Rate Greater Than 89 mL/min (>89)
--- NOTE | 2018-05-09 09:15 | MG ---
cc: Wendy Mejia MD AGE: [age] years old. EEG NUMBER: [id number] REFERRING PHYSICIAN: Dr. Ovi Malik. INDICATIONS: In room 1309, awake, drowsy, asleep with photic only. Alert DICTATION ENDS HERE Wendy Mejia MD DF/sv/do , 07:13 PM , 07:17 PM
[2018-05-09] MEDS: Polyethylene Glycol 3350 17 GM Packet PO SCH ×2 (09:50→23:04)
[2018-05-09] MEDS: Famotidine 20 MG Tablet PO SCH ×2 (09:50→23:03)
[2018-05-09] MEDS: Senna/Docusate Sodium 8.6/50 MG Tablet PO SCH ×2 (09:51→23:03)
--- NOTE | 2018-05-09 11:11 | MB ---
cc: Wendy Mejia MD DATE: 05/09/2018 REASON FOR CONSULTATION: Change in mental status. HISTORY OF PRESENT ILLNESS: This is a 53-year-old woman who was admitted to the hospital on 05/07/2018 with a known history of depression, taking Wellbutrin, has a history of chronic marijuana use, sober for 10 years from alcohol, comes in with 2 weeks of change in mentation, delusional thinking. Basically, her and daughter have been taking care of her for the last 2 weeks. Her son is at bedside today giving some history as well. Apparently, she was saying things that did not make sense, like the devil was in her mouth. She did tell me she had a dream of God and the devil. There was some lack of sleep for days. She was brought in, had a complete evaluation with imaging, spinal tap, psychiatric evaluation. She is still on antibiotics and antivirals until her blood work is negative. Currently, her son says she is the best she has been today. She is actually sitting up in bed, eating breakfast, still a little tearful at times but otherwise doing fairly well. SOCIAL HISTORY: She is . She has 2 children. She smokes marijuana near daily. No longer drinks for 10 years. ALLERGIES TO MEDICINES: NONE. HOME MEDICINES: Please refer to MAR. PHYSICAL EXAMINATION: VITAL SIGNS: Temperature is 98, pulse 80, respiratory rate 19, blood pressure 122/58 sitting and 98%. NEUROLOGIC: She is awake and alert. Her speech is normal. Pupils are reactive. Her face is symmetrical. Tongue is midline. Visual swain are full. Motor wren, [id number] there is no past pointing. Strength is intact throughout. DTRs are brisk. Gait: She is able to stand up. She is a little unsteady, but she has not been out of bed a few days, so we will have PT assess her. LABORATORY DATA: Reviewed. Her LP glucose 60, LDH 12, lactic acid 1.3, protein 33.9. VDRL pending. Edith-Coleman virus DNA PCR is pending. Toxo is pending. West Nile pending. Urine: No culture indicated. Chemistries: GFR is more than 89. Ceruloplasmin, thiamine, B6 pending. Her B12 is 239, a bit low. TSH 1.700. LFTs are unremarkable. HIV is nonreactive. Other serologies are still pending. CBC today, white count is 14.4. She came in with a white count of 17.8, hemoglobin 10.6, platelets 425,000. Tox screen was positive for benzos and cannabinoids. Microbiology cultures are still pending. Gram stain, final: No organisms. AFB: Mycobacterial culture pending. Her initial blood cultures at 24 hours were negative. Her EEG was unremarkable. Her MRI did show some atrophy in the right cerebellum and fissure that could possibly represent an infarct or atrophy, but there was no enhancement. This is something old. Otherwise, there are no acute findings on MRI. ASSESSMENT AND PLAN: This is a 53-year-old woman with abrupt change in mental status. Certainly may be due to some psychiatric component, so ruling out an acute central nervous system infection. Some of her workup is still pending. She is currently on acyclovir, ceftriaxone, vancomycin. She was seen by psychiatry, and she is currently on Ativan as needed for agitation 2 mg, Zyprexa 5 mg at night. I believe if she is doing well today, they want her to go to the medical and psychiatric floor for further evaluation and treatment. From my perspective, certainly she can go. Continue with her medications for possible central nervous system infection until her workup is negative. HSV PCR is still pending as well. Continue antiviral. From my perspective, she seems to be doing much better. I do not think we need to do any other evaluation at this point in time unless something shows up abnormal. I could gladly see her back in the office once discharged for further assessment as needed. Continue current care. MD ARTUR De La Garza/navi , 09:50 AM , 10:01 AM
--- NOTE | 2018-05-09 11:12 | P.PNIM ---
Subjective Interval history: in no distress. awake, alert and oriented. mild headache. no fever. Physical Exam Vital signs: Vital Signs 05/08/18 12:00 05/08/18 16:00 05/08/18 18:00 Temperature 98.5 F 99 F 98.1 F Pulse Rate 83 96 H 86 Respiratory Rate 20 Blood Pressure 131/55 L 120/61 108/64 Pulse Oximetry 96 100 100 05/08/18 20:45 05/09/18 00:20 05/09/18 05:30 Temperature 97.7 F 98 F 98 F Pulse Rate 100 H 88 80 Respiratory Rate 17 18 19 Blood Pressure 116/69 120/60 122/58 L Pulse Oximetry 97 98 98 Intake & Output 05/08/18 05/09/18 05/09/18 18:59 06:59 18:59 Intake Total 2853.3 / 2853.3 2982.6 / 2982.6 Balance 2853.3 / 2853.3 2982.6 / 2982.6 Weight 48.7 kg 49 kg Intake: IV 2493.3 / 2493.3 732.6 / 732.6 NS Inj 1,000 ML @ 84 mls/hr IV. 650 / 650 CONT .[id number] EUGENIA Rx#:[id number] Zovirax Inj 465 MG In NS Inj 219.3 / 219.3 218.6 / 218.6 100 ML @ 109.3 mls/hr IV.SIG Q8H EUGENIA Rx#:[id number] NS Inj 1,000 ML @ Wide Open IV. 1000 / 1000 SIG BOLUS EUGENIA Rx#:[id number] Vancomycin Inj 700 MG In NS Inj 524 / 524 514 / 514 250 ML @ 250 mls/hr IV.SIG Q8H EUGENIA Rx#:[id number] Rocephin Inj 2,000 MG In NS Inj 100 / 100 100 ML @ 200 mls/hr IV.SIG Q12H EUGENIA Rx#:[id number] Oral 360 / 360 2250 / 2250 Other: # Voids 3 6 1 # Bowel Movements 0 - Constitutional no acute distress - Routine Neck Exam Present: full ROM - Routine Respiratory Exam Present: CTA bilaterally - Routine Cardiovascular Exam Present: RRR - Routine Abdominal Exam Present: soft - Routine Extremities Exam Comments: no pedal edema. - Routine Neurological Exam Present: alert, oriented X3 - Urinary Catheter Management Straight Cath placed during this visit: yes Reason for continuing: Not indwelling catheter Insertion date: 05/07/18 Insertion time: 21:22 Results - Labs CBC & Chem 7: 05/09/18 07:50 05/09/18 12:36 Laboratory Results - last 24 hr 05/08/18 05/08/18 05/09/18 00:43 10:15 07:50 WBC RBC Hgb Hct MCV MCH MCHC RDW Plt Count MPV Neut % (Auto) Lymph % (Auto) [place] % (Auto) Eos % (Auto) Baso % (Auto) Neut # (Auto) Lymph # (Auto) [place] # (Auto) Eos # (Auto) Baso # (Auto) WBC Differential . Diff Scan Auto diff confirmed Differential Comment Creatinine 0.38 L Estimated GFR Greater than 89 CSF Supernat Color (2) Clear CSF Supernat Color (3) Clear CSF Supernat Color (4) Clear 05/09/18 07:50 WBC 14.4 H RBC 3.25 L Hgb 10.6 L Hct 30.6 L MCV 94.2 MCH 32.5 MCHC 34.5 RDW 12.6 Plt Count 425 MPV 6.9 L Neut % (Auto) 56.5 Lymph % (Auto) 30.9 [place] % (Auto) 10.7 H Eos % (Auto) 0.8 Baso % (Auto) 1.1 Neut # (Auto) 8.1 H Lymph # (Auto) 4.4 [place] # (Auto) 1.5 H Eos # (Auto) 0.1 Baso # (Auto) 0.2 WBC Differential . Diff Scan Differential Comment Auto diff final Creatinine Estimated GFR CSF Supernat Color (2) CSF Supernat Color (3) CSF Supernat Color (4) Microbiology 05/08/18 01:25 Blood - Peripheral Aerobic Blood Culture - Preliminary No growth in 1 day 05/08/18 01:25 Blood - Peripheral Anaerobic Blood Culture - Preliminary No growth in 1 day 05/08/18 01:35 Blood - Peripheral Aerobic Blood Culture - Preliminary No growth in 1 day 05/08/18 01:35 Blood - Peripheral Anaerobic Blood Culture - Preliminary No growth in 1 day 05/07/18 18:48 Blood - Peripheral Aerobic Blood Culture - Preliminary No growth in 2 days 05/07/18 18:48 Blood - Peripheral Anaerobic Blood Culture - Preliminary No growth in 2 days 05/07/18 18:40 Blood - Peripheral Aerobic Blood Culture - Preliminary No growth in 2 days 05/07/18 18:40 Blood - Peripheral Anaerobic Blood Culture - Preliminary No growth in 2 days 05/08/18 00:43 Lumbar Puncture Gram Stain - Final 05/08/18 00:43 Lumbar Puncture CSF Culture - Preliminary No growth in 24 hours Assessment and Plan - Plan A/P Acute encephalopathy- improved. MRI brain with no acute infarct and EEG normal- s/p LP- CSF cultures and blood cultures negative so far. d/w today; cleared for discharge to med-psych- will keep on IV antibiotics for now till CSF studies resulted. Acute psychosis psych consult appreciated and recommended inpatient psych admission. Discussed Condition With: the patient, her son/ . Discharge Planning: to med-psych unit tomorrow if stable, no fever/ pending CBC.
--- NOTE | 2018-05-09 11:16 | P.DS ---
Date of admission: 05/07/18 23:23 Primary care physician: UNKNOWN Brief History from admission: This is a 53-year-old female who has a past medical history of mild depression for which she took Wellbutrin and chronic daily marijuana use. She presents with approximately 2 weeks of sudden onset acute altered mentation, delusional thinking. Patient is very acutely altered and a reliable history is not obtainable from her. Her and daughter are at bedside and have been taking care of her over the last 2 weeks and have a very detailed history of present illness. According to her family, the patient has not had any changes to her medical history, has been healthy and otherwise active. They do state that she had EtOH dependence but has been sober for 10 years now. They state that approximately 2 weeks ago she came home from an AA meeting and suddenly decided that she would stop smoking marijuana and tobacco. At the same time, she began to have delusional thoughts, primarily of a protestant nature. She states things like "the devil is in my mouth ". According to her family, she has been stating things like her neighbors of the devil. She has significant echolalia and is singing song lyrics, all of which have protestant references. Family has also noticed that she has not slept for days on end, and goes routinely 36 hours without sleep, again over the last 2 weeks. She was recently hospitalized last week and outside hospital for dehydration and at that time outside hospital CAT scan of the head was negative for acute illness. The family states they diagnosed her with an acute onset psychiatric illness, started on risperidone, and suggests she come to [facility] for admission to an inpatient psychiatric unit. The family has lab reports from outside hospital suggesting that she had a elevated white count and a fever at that time. In our emergency department, she also has a white count of 16,000 and she is febrile to 38.4C. Tox screen is negative. CT head at our facility demonstrates small hypodensity in the right cerebellum. MRI is negative except for a small widening of the cerebellar folds in the right cerebellum. Systems from the patient is essentially unobtainable due to her severe altered mentation. The patient has not had any international travel in the last 6-12 months. She has had small 2-3 day trips out of the area to the [place], [place], and most recently 3 days in [place] approximately a week ago. No contact with wild life. No hunting trips. [place] significant amount of mosquitoes this time of year. In addition, the states that [place], although the patient does not have any direct contact with the horses. The patient's family history is only positive for CVA: Her grandmother at the age of 89, and a sister at the age of 60. There is no family history of mental illness. She does have a sister who of drug overdose in her 50s. No one in her family is ever been hospitalized for mental illness. She is not of Mediterranean descent. She is of [place] descent. She has no high risk sexual behaviors. She has been monogamous with her for 15 years. She has never used intravenous drugs. No tattoos. DS: Summary Hospital Course: Acute encephalopathy- improved. MRI brain with no acute infarct and EEG normal- s/p LP- CSF cultures and blood cultures negative so far. d/w today; cleared for discharge to med-psych- will keep on IV antibiotics for now till CSF studies resulted. Acute psychosis psych consult appreciated and recommended inpatient psych admission. - Time Spent with Patient Total time spent providing and/or coordinating discharge services: Less than 30 minutes - Quality: VTE Deep Vein Thrombosis/Pulmonary Embolism Present on Admission: No Exam Vital signs: Vital Signs 05/08/18 12:00 05/08/18 16:00 05/08/18 18:00 Temperature 98.5 F 99 F 98.1 F Pulse Rate 83 96 H 86 Respiratory Rate 20 Blood Pressure 131/55 L 120/61 108/64 Pulse Oximetry 96 100 100 05/08/18 20:45 05/09/18 00:20 05/09/18 05:30 Temperature 97.7 F 98 F 98 F Pulse Rate 100 H 88 80 Respiratory Rate 17 18 19 Blood Pressure 116/69 120/60 122/58 L Pulse Oximetry 97 98 98 Intake & Output 05/08/18 05/09/18 05/09/18 18:59 06:59 18:59 Intake Total 2853.3 / 2853.3 2982.6 / 2982.6 Balance 2853.3 / 2853.3 2982.6 / 2982.6 Weight 48.7 kg 49 kg Intake: IV 2493.3 / 2493.3 732.6 / 732.6 NS Inj 1,000 ML @ 84 mls/hr IV. 650 / 650 CONT .[id number] EUGENIA Rx#:[id number] Zovirax Inj 465 MG In NS Inj 219.3 / 219.3 218.6 / 218.6 100 ML @ 109.3 mls/hr IV.SIG Q8H EUGENIA Rx#:[id number] NS Inj 1,000 ML @ Wide Open IV. 1000 / 1000 SIG BOLUS EUGENIA Rx#:[id number] Vancomycin Inj 700 MG In NS Inj 524 / 524 514 / 514 250 ML @ 250 mls/hr IV.SIG Q8H EUGENIA Rx#:[id number] Rocephin Inj 2,000 MG In NS Inj 100 / 100 100 ML @ 200 mls/hr IV.SIG Q12H EUGENIA Rx#:[id number] Oral 360 / 360 2250 / 2250 Other: # Voids 3 6 1 # Bowel Movements 0 - Constitutional no acute distress - Routine Neck Exam Present: full ROM - Routine Respiratory Exam Present: CTA bilaterally - Routine Cardiovascular Exam Present: RRR - Routine Abdominal Exam Present: soft - Routine Extremities Exam Comments: no pedal edema. - Routine Neurological Exam Present: alert, oriented X3 Results Procedures completed during hospitalization: LP Labs on day of discharge: Labs from last 24 hours 05/09/18 05/09/18 05/08/18 07:50 07:50 15:32 WBC 14.4 H RBC 3.25 L Hgb 10.6 L Hct 30.6 L MCV 94.2 MCH 32.5 MCHC 34.5 RDW 12.6 Plt Count 425 MPV 6.9 L Neut % (Auto) 56.5 Lymph % (Auto) 30.9 [place] % (Auto) 10.7 H Eos % (Auto) 0.8 Baso % (Auto) 1.1 Neut # (Auto) 8.1 H Lymph # (Auto) 4.4 [place] # (Auto) 1.5 H Eos # (Auto) 0.1 Baso # (Auto) 0.2 WBC Differential . Differential Comment Auto diff final Creatinine 0.38 L Estimated GFR Greater than 89 Ceruloplasmin Pending Thiamine Pending Vitamin B6 Pending CSF Supernat Color (2) CSF Supernat Color (3) CSF Supernat Color (4) 05/08/18 00:43 WBC RBC Hgb Hct MCV MCH MCHC RDW Plt Count MPV Neut % (Auto) Lymph % (Auto) [place] % (Auto) Eos % (Auto) Baso % (Auto) Neut # (Auto) Lymph # (Auto) [place] # (Auto) Eos # (Auto) Baso # (Auto) WBC Differential Differential Comment Creatinine Estimated GFR Ceruloplasmin Thiamine Vitamin B6 CSF Supernat Color (2) Clear CSF Supernat Color (3) Clear CSF Supernat Color (4) Clear Preliminary micro results at discharge 05/08/18 01:25 Aerobic Blood Culture - Preliminary Blood - Peripheral No growth in 1 day Anaerobic Blood Culture - Preliminary No growth in 1 day 05/08/18 01:35 Aerobic Blood Culture - Preliminary Blood - Peripheral No growth in 1 day Anaerobic Blood Culture - Preliminary No growth in 1 day 05/07/18 18:48 Aerobic Blood Culture - Preliminary Blood - Peripheral No growth in 2 days Anaerobic Blood Culture - Preliminary No growth in 2 days 05/07/18 18:40 Aerobic Blood Culture - Preliminary Blood - Peripheral No growth in 2 days Anaerobic Blood Culture - Preliminary No growth in 2 days 05/08/18 00:43 CSF Culture - Preliminary Lumbar Puncture No growth in 24 hours - Impressions ITS Impressions Head MRI 05/07/18 00:00 CONCLUSION: 1. No acute findings in the brain. No abnormal areas of contrast enhancement and no evidence of acute infarction. 2. Focal atrophy in the right cerebellum with widening of the interhemispheric fissure. Chest X-Ray 05/07/18 18:18 CONCLUSION: Negative examination. Head CT 05/07/18 18:18 CONCLUSION: 1. Focal decreased attenuation involving the right cerebellar hemisphere is consistent with probable cerebellar infarct. 2. No acute infarct, acute hemorrhage, midline shift or extra-axial fluid collections. Abdomen/Pelvis CT 05/08/18 00:00 CONCLUSION: 1. Unremarkable CT scan of the abdomen and pelvis except for atelectasis in both lung bases Chest CT 05/08/18 00:00 CONCLUSION: 1. Atelectasis in both the lingula and the medial right middle lobe. No concerning infiltrate or mass. No evidence of metastatic disease Discharge Plan - Discharge Disposition Patient Disposition: 63 Disc To [facility] - Discharge Condition Condition: Stable - Physicians Team Primary Care Provider: UNKNOWN, Attending Provider: Pollo Tovar Other Providers: Beck Locke MD ; Wendy Mejia MD
[2018-05-09] MEDS ORDERED: Pharmacy Ordered Lab Info OTHER ONE (12:45)
[2018-05-09 13:49] LABS: Anion Gap 8 meq/L (5-15); Blood Urea Nitrogen 6 mg/dL (7-18); Calcium 8.3 mg/dL (8.5-10.1); Carbon Dioxide 28.7 meq/L (21.0-32.0); Chloride 107 meq/L (98-107); Glomerular Filtration Rate Greater Than 89 mL/min (>89); Glucose,Random 90 mg/dL (74-106); Magnesium 1.7 mg/dL (1.5-2.5); Phosphorus 3.9 mg/dL (2.5-4.9); Potassium 3.7 meq/L (3.5-5.1); Sodium 144 meq/L (136-145)
[2018-05-09] MEDS ORDERED: Haloperidol Inj 5 MG/ML Ampul IM PRN (17:04)
[2018-05-09] MEDS ORDERED: Acetaminophen 325 MG Tablet PO PRN (18:23)
[2018-05-09] MEDS: Vancomycin Inj 1,000 MG in Sodium Chlor 0.9% Inj 250 ML IV.SIG SCH (23:03)
[2018-05-10] MEDS: Chlorhexidine Gluconate 2% 1 Pack (2 Cloths) TOPICAL SCH (05:45)
[2018-05-10] MEDS: Vancomycin Inj 1,000 MG in Sodium Chlor 0.9% Inj 250 ML IV.SIG SCH ×3 (05:47→21:37)
[2018-05-10] MEDS: SODIUM CHLOR 0.9% IV.SIG SCH ×3 (05:48→20:31)
[2018-05-10] MEDS: Heparin - SQ 10,000 UNITS/ML Vial SQ SCH ×3 (05:48→21:37)
[2018-05-10] MEDS: ACYCLOVIR IV.SIG SCH ×3 (05:48→20:31)
[2018-05-10 07:31] LABS: Baso # (Auto) 0.1 th/mm3 (0.0-0.2); Baso % (Auto) 1.2 % (0.0-2.0); Eos # (Auto) 0.2 th/mm3 (0.0-0.4); Eos % (Auto) 1.5 % (0.0-4.0); Hematocrit 33.8 % (35.0-46.0); Hemoglobin 11.6 gm/dL (11.6-15.3); Lymph # (Auto) 3.8 th/mm3 (1.0-4.8); Lymph % (Auto) 35.3 % (9.0-44.0); Mean Corpuscular HGB Conc 34.5 % (32.0-36.0); Mean Corpuscular Hemoglobin 32.5 pg (27.0-34.0); Mean Corpuscular Volume 94.4 fL (80.0-100.0); Mean Platelet Volume 7.4 fL (7.0-11.0); Mono # (Auto) 1.4 th/mm3 (0.0-0.9); Mono % (Auto) 13.2 % (0.0-8.0); Neut # (Auto) 5.3 th/mm3 (1.8-7.7); Neut % (Auto) 48.8 % (16.0-70.0); Platelet Count 489 th/mm3 (150-450); Red Blood Count 3.58 mil/mm3 (4.00-5.30); Red Cell Distribution Width 12.7 % (11.6-17.2); White Blood Count 10.8 th/mm3 (4.0-11.0)
[2018-05-10 08:09] LABS: Anion Gap 8 meq/L (5-15); Blood Urea Nitrogen 6 mg/dL (7-18); Calcium 9.5 mg/dL (8.5-10.1); Carbon Dioxide 29.1 meq/L (21.0-32.0); Chloride 102 meq/L (98-107); Glomerular Filtration Rate Greater Than 89 mL/min (>89); Glucose,Random 88 mg/dL (74-106); Phosphorus 3.8 mg/dL (2.5-4.9); Potassium 3.7 meq/L (3.5-5.1); Sodium 139 meq/L (136-145)
[2018-05-10] MEDS: Famotidine 20 MG Tablet PO SCH ×2 (08:31→20:29)
[2018-05-10] MEDS: Polyethylene Glycol 3350 17 GM Packet PO SCH ×2 (08:33→20:28)
[2018-05-10] MEDS: Senna/Docusate Sodium 8.6/50 MG Tablet PO SCH ×2 (08:33→20:37)
--- NOTE | 2018-05-10 09:46 | P.PNIM ---
Subjective Interval history: f/u; altered mental status looks and feels much better today. no headache or fever. complaining of constipation. son at the bedside. Physical Exam Vital signs: Vital Signs 05/09/18 13:13 05/09/18 16:00 05/09/18 20:00 Temperature 98.4 F 98.5 F Pulse Rate 112 H 92 H Respiratory Rate 18 16 18 Blood Pressure 128/78 97/59 L Pulse Oximetry 100 97 05/10/18 00:00 05/10/18 04:00 Temperature 97.9 F 97.9 F Pulse Rate 88 94 H Respiratory Rate 18 17 Blood Pressure 143/76 H 112/72 Pulse Oximetry 100 100 Intake & Output 05/09/18 05/10/18 05/10/18 18:59 06:59 18:59 Intake Total 466.3 / 466.3 718.6 / 718.6 Balance 466.3 / 466.3 718.6 / 718.6 Weight 48.3 kg Intake: IV 466.3 / 466.3 718.6 / 718.6 Zovirax Inj 465 MG In NS Inj 109.3 / 109.3 218.6 / 218.6 100 ML @ 109.3 mls/hr IV.SIG Q8H EUGENIA Rx#:[id number] Vancomycin Inj 1,000 MG In NS 500 / 500 Inj 250 ML @ 250 mls/hr IV.SIG Q8H EUGENIA Rx#:[id number] Vancomycin Inj 700 MG In NS Inj 257 / 257 250 ML @ 250 mls/hr IV.SIG Q8H EUGENIA Rx#:[id number] Rocephin Inj 1,000 MG In NS Inj 100 / 100 100 ML @ 200 mls/hr IV.SIG Q24H EUGENIA Rx#:[id number] Other: # Voids 2 3 - Constitutional no acute distress - Routine Respiratory Exam Present: CTA bilaterally - Routine Cardiovascular Exam Present: RRR - Routine Abdominal Exam Present: soft - Routine Extremities Exam Comments: no pedal edema. - Routine Neurological Exam Present: alert, oriented X3 - Urinary Catheter Management Straight Cath placed during this visit: yes Reason for continuing: Not indwelling catheter Insertion date: 05/07/18 Insertion time: 21:22 Results - Labs CBC & Chem 7: 05/10/18 06:10 05/10/18 06:10 Laboratory Results - last 24 hr 05/08/18 05/08/18 05/09/18 00:43 00:43 12:36 WBC RBC Hgb Hct MCV MCH MCHC RDW Plt Count MPV Neut % (Auto) Lymph % (Auto) [place] % (Auto) Eos % (Auto) Baso % (Auto) Neut # (Auto) Lymph # (Auto) [place] # (Auto) Eos # (Auto) Baso # (Auto) WBC Differential Differential Comment Sodium 144 Potassium 3.7 Chloride 107 Carbon Dioxide 28.7 Anion Gap 8 BUN 6 L Creatinine 0.34 L Estimated GFR Greater than 89 Random Glucose 90 Calcium 8.3 L Phosphorus 3.9 Magnesium 1.7 CSF N.mening B/E.coli K1 Cancelled CSF N.meningitidis A/Y Cancelled Vancomycin Trough 8.0 Bacterial Ag Source Cancelled Herpes Simplex Source Cancelled HSV I DNA PCR Cancelled HSV II DNA PCR Cancelled Herpes Group DNA PCR Cancelled H.influenzae Type B Ag Cancelled N. meningitidis C/W 135 Cancelled Group B Strep Antigen Cancelled S. pneumoniae Antigen Cancelled Varicella-Zoster Source Cancelled VZV DNA (PCR) Cancelled 05/10/18 05/10/18 06:10 06:10 WBC 10.8 RBC 3.58 L Hgb 11.6 Hct 33.8 L MCV 94.4 MCH 32.5 MCHC 34.5 RDW 12.7 Plt Count 489 H MPV 7.4 Neut % (Auto) 48.8 Lymph % (Auto) 35.3 [place] % (Auto) 13.2 H Eos % (Auto) 1.5 Baso % (Auto) 1.2 Neut # (Auto) 5.3 Lymph # (Auto) 3.8 [place] # (Auto) 1.4 H Eos # (Auto) 0.2 Baso # (Auto) 0.1 WBC Differential . Differential Comment Auto diff final Sodium 139 Potassium 3.7 Chloride 102 Carbon Dioxide 29.1 Anion Gap 8 BUN 6 L Creatinine 0.49 L Estimated GFR Greater than 89 Random Glucose 88 Calcium 9.5 D Phosphorus 3.8 Magnesium 2.0 CSF N.mening B/E.coli K1 CSF N.meningitidis A/Y Vancomycin Trough Bacterial Ag Source Herpes Simplex Source HSV I DNA PCR HSV II DNA PCR Herpes Group DNA PCR H.influenzae Type B Ag N. meningitidis C/W 135 Group B Strep Antigen S. pneumoniae Antigen Varicella-Zoster Source VZV DNA (PCR) Microbiology 05/08/18 00:43 Lumbar Puncture Gram Stain - Final 05/08/18 00:43 Lumbar Puncture CSF Culture - Preliminary No growth in 48 hours 05/08/18 00:43 Cerebral Spinal Fluid - Lumbar Puncture Acid Fast Bacilli Smear - Final No acid fast bacilli seen 05/08/18 01:25 Blood - Peripheral Aerobic Blood Culture - Preliminary No growth in 1 day 05/08/18 01:25 Blood - Peripheral Anaerobic Blood Culture - Preliminary No growth in 1 day 05/08/18 01:35 Blood - Peripheral Aerobic Blood Culture - Preliminary No growth in 1 day 05/08/18 01:35 Blood - Peripheral Anaerobic Blood Culture - Preliminary No growth in 1 day 05/07/18 18:48 Blood - Peripheral Aerobic Blood Culture - Preliminary No growth in 2 days 05/07/18 18:48 Blood - Peripheral Anaerobic Blood Culture - Preliminary No growth in 2 days 05/07/18 18:40 Blood - Peripheral Aerobic Blood Culture - Preliminary No growth in 2 days 05/07/18 18:40 Blood - Peripheral Anaerobic Blood Culture - Preliminary No growth in 2 days - Procedures LP Assessment and Plan - Plan A/P Acute encephalopathy- resolved. MRI brain with no acute infarct and EEG normal- s/p LP- CSF cultures and blood cultures negative so far. previously d/w ; cleared for discharge to med-psych- will stop IV Vanco and Rocephin and continue with IV Acyclovir till CSF studies resulted. Acute psychosis psych consult appreciated and recommended inpatient psych admission. constipation; laxatives as needed. Discharge Planning: dc to med-psych. see med list. f/u; pcp, psych and neurology. d/w the patient and . d/w the son.
[2018-05-10] MEDS ORDERED: Sod Phosphate/Sod Biphosphate (Adult) Enema 133 ML Bottle RECTAL PRN (09:50)
--- NOTE | 2018-05-10 17:37 | P.PNADD ---
Addendum to Inpatient Note Reason for Addendum: Additional Documentation (d/w the son who requested psych re-evaluation prior to discharge to psych unit; will hold the dc planning for now and will reconsult psych for reevaluation.d/w the RN.)
[2018-05-10] MEDS ORDERED: Pharmacy Ordered Lab Info OTHER ONE (20:45)
[2018-05-11] MEDS: Chlorhexidine Gluconate 2% 1 Pack (2 Cloths) TOPICAL SCH (04:57)
[2018-05-11] MEDS: SODIUM CHLOR 0.9% IV.SIG SCH ×2 (04:59→12:28)
[2018-05-11] MEDS: Vancomycin Inj 1,000 MG in Sodium Chlor 0.9% Inj 250 ML IV.SIG SCH (04:59)
[2018-05-11] MEDS: ACYCLOVIR IV.SIG SCH ×2 (04:59→12:28)
[2018-05-11] MEDS: Heparin - SQ 10,000 UNITS/ML Vial SQ SCH ×2 (05:03→13:30)
[2018-05-11 07:20] LABS: Baso # (Auto) 0.1 th/mm3 (0.0-0.2); Baso % (Auto) 1.1 % (0.0-2.0); Eos # (Auto) 0.3 th/mm3 (0.0-0.4); Eos % (Auto) 3.1 % (0.0-4.0); Hematocrit 31.1 % (35.0-46.0); Hemoglobin 10.7 gm/dL (11.6-15.3); Lymph # (Auto) 3.2 th/mm3 (1.0-4.8); Lymph % (Auto) 34.5 % (9.0-44.0); Mean Corpuscular HGB Conc 34.5 % (32.0-36.0); Mean Corpuscular Hemoglobin 32.5 pg (27.0-34.0); Mean Corpuscular Volume 94.3 fL (80.0-100.0); Mean Platelet Volume 6.8 fL (7.0-11.0); Mono % (Auto) 10.9 % (0.0-8.0); Neut # (Auto) 4.7 th/mm3 (1.8-7.7); Neut % (Auto) 50.4 % (16.0-70.0); Platelet Count 498 th/mm3 (150-450); Red Cell Distribution Width 12.6 % (11.6-17.2); White Blood Count 9.3 th/mm3 (4.0-11.0)
[2018-05-11 08:16] LABS: Anion Gap 9 meq/L (5-15); Blood Urea Nitrogen 8 mg/dL (7-18); Calcium 9.2 mg/dL (8.5-10.1); Carbon Dioxide 28.5 meq/L (21.0-32.0); Chloride 104 meq/L (98-107); Glomerular Filtration Rate Greater Than 89 mL/min (>89); Glucose,Random 80 mg/dL (74-106); Magnesium 2.1 mg/dL (1.5-2.5); Potassium 4.1 meq/L (3.5-5.1); Sodium 141 meq/L (136-145)
[2018-05-11 08:17] LABS: Phosphorus 3.5 mg/dL (2.5-4.9)
[2018-05-11] MEDS: Senna/Docusate Sodium 8.6/50 MG Tablet PO SCH (09:16)
[2018-05-11] MEDS: Polyethylene Glycol 3350 17 GM Packet PO SCH (09:17)
[2018-05-11] MEDS: Famotidine 20 MG Tablet PO SCH (09:17)
[2018-05-11 10:17] LABS: EBV DNA PCR CSF Source CSF; Epstein-Barr Virus DNA PCR CSF Negative (Negative)
--- NOTE | 2018-05-11 10:28 | P.PNPSY ---
Subjective Remarks: The patient was seen today for psychiatric reevaluation. The documentation was reviewed. Collateral information from her son was obtained. On my psychiatric evaluation today the patient is calm, cooperative, a little bit labile and tearful. However, the patient reports feeling much better today, she says that she is motivated to go back home, to continue her medications, get better and fight against cannabis addiction. Patient reports that could bit alcoholism, she will do with marijuana. At this moment the patient is logical, coherent and relevant. She has some moments of tears, but she denies hopelessness, she denies helplessness, she denies worthlessness. The patient denies suicidal and homicidal ideation, she denies visual and auditory hallucinations. The patient is circumstantial, but lineal, no rodolfo joanne, no loosening of associations, no delusions, no attention deficit, no fluctuation of consciousness are present at this moment. She does report anxiety, some difficulty sleeping at night "this is the reason I used marijuana". As per son, the patient is very close to baseline at this moment, he does not feel that she needs psychiatric admission and the family is already trying to arrange outpatient psychiatric care in the community. Mental Status Examination Appearance: Appropriate Consciousness: Alert Orientation: x4 Motor Activity: Normal gait Speech: Pressured Language: Adequate Fund of Knowledge: Adequate Attention and Concentration: Adequate Memory: Impaired Mood: Good Affect: Appropriate Thought Process & Associations: Intact, Loose associations Thought Content: Bizarre thinking, Hallucinations, Preoccupations (christianity), Delusional Hallucination Type: Auditory Delusion Type: None Suicidal Ideation: No Suicidal Plan: No Suicidal Intention: No Homicidal Ideation: No Homicidal Plan: No Homicidal Intention: No Insight: Fair Judgment: Impulsive Assessment and Plan - Assessment (1) Unspecified psychosis Code(s): F29 - Unspecified psychosis not due to a substance or known physiological condition Status: Acute - Plan Plan: Patient mental status is much improved today. She is oriented 3, no attention deficit, no fluctuation of consciousness present. She is logical, coherent and relevant. She denies suicidal and homicidal ideation, denies visual and auditory hallucinations. She does have some moments of tears, labile affect, reports anxiety and difficulty sleeping at night. Continue olanzapine 5 mg twice daily. I will start clonazepam 0.5 mg every 8 hours for anxiety. Extensive psychoeducation was provided about the importance of taking the medication as prescribed and no misusing narcotics. Also education about the importance of avoiding cannabis. She will continue psychiatric care with a private psychiatrist in the community, family is working on it. Patient is psychiatrically cleared to continue medical care and be discharged back home Justification for Continued Inpatient Stay: Patient is psychiatrically cleared to continue medical care and be discharged back home
[2018-05-11] MEDS ORDERED: Pharmacy Ordered Lab Info OTHER ONE (12:45)
[2018-05-11] MEDS ORDERED: clonazePAM 0.5 MG Tablet PO SCH (14:00)
--- NOTE | 2018-05-11 15:29 | P.PN ---
Subjective Interval history: Follow up on patient with acute encephalopathy. Patient seen and examined. Patient states she is much better. She is hoping to go home. She has lots of family support. I contacted our lab directly and patient tested negative for HSV I&II. VZV is still pending. Bacterial antigen was cancelled because she had less than 50 WBCs in CSF. She has been cleared by psychiatry for home. Physical Exam Vital signs: Vital Signs 05/10/18 16:00 05/10/18 20:00 05/11/18 00:00 Temperature 97.1 F L 98.1 F 97.6 F Pulse Rate 97 H 108 H 107 H Respiratory Rate 20 18 18 Blood Pressure 170/81 H 133/87 120/78 Pulse Oximetry 100 98 96 05/11/18 04:00 05/11/18 08:00 05/11/18 12:00 Temperature 98.7 F 98.5 F 97.8 F Pulse Rate 100 H 111 H 95 H Respiratory Rate 18 20 20 Blood Pressure 102/67 140/87 125/72 Pulse Oximetry 99 98 97 Intake & Output 05/10/18 05/11/18 05/11/18 18:59 06:59 18:59 Intake Total 1179.3 / 1179.3 -524.4 / -524.4 359.3 / 359.3 Output Total Balance 1178.3 / 1178.3 -524.4 / -524.4 358.3 / 358.3 Weight 48.3 kg Intake: IV 459.3 / 459.3 -524.4 / -524.4 359.3 / 359.3 Zovirax Inj 465 MG In NS Inj 109.3 / 109.3 -774.4 / -774.4 109.3 / 109.3 100 ML @ 109.3 mls/hr IV.SIG Q8H EUGENIA Rx#:[id number] Vancomycin Inj 1,000 MG In NS 250 / 250 250 / 250 250 / 250 Inj 250 ML @ 250 mls/hr IV.SIG Q8H EUGENIA Rx#:[id number] Rocephin Inj 1,000 MG In NS Inj 100 / 100 100 ML @ 200 mls/hr IV.SIG Q24H EUGENIA Rx#:[id number] Oral 720 / 720 Output: Urine Stool 1 / 1 Other: # Voids 2 Date of Last Bowel Movement 05/10/18 05/10/18 Narrative: GENERAL: WDWN female, INAD. Awake and alert. She is oriented x 3. Son is at the bedside. SKIN: Warm and dry. HEAD: Atraumatic. Normocephalic. EYES: Pupils equal and round. No scleral icterus. No injection or drainage. ENT: No nasal bleeding or discharge. Mucous membranes pink and moist. NECK: Trachea midline. CARDIOVASCULAR: Regular rate and rhythm. RESPIRATORY: No accessory muscle use. Clear to auscultation. Breath sounds equal bilaterally. GASTROINTESTINAL: Abdomen soft, non-tender, nondistended. +BS. MUSCULOSKELETAL: Extremities without clubbing, cyanosis, or edema. No obvious deformities. NEUROLOGICAL: Awake and alert. No obvious cranial nerve deficits. Motor grossly within normal limits. No focal neurologic finding appreciated. Normal speech. PSYCHIATRIC: Appropriate mood and affect. Coherent thought process. - Urinary Catheter Management Straight Cath placed during this visit: yes Reason for continuing: Not indwelling catheter Insertion date: 05/07/18 Insertion time: 21:22 Results - Labs CBC & Chem 7: 05/11/18 07:00 05/11/18 07:00 Laboratory Results - last 24 hr 05/08/18 05/08/18 05/08/18 00:43 00:43 00:43 WBC RBC Hgb Hct MCV MCH MCHC RDW Plt Count MPV Neut % (Auto) Lymph % (Auto) Glynn % (Auto) Eos % (Auto) Baso % (Auto) Neut # (Auto) Lymph # (Auto) Glynn # (Auto) Eos # (Auto) Baso # (Auto) WBC Differential Differential Comment Sodium Potassium Chloride Carbon Dioxide Anion Gap BUN Creatinine Estimated GFR Random Glucose Calcium Phosphorus Magnesium CSF EBV DNA (PCR) Negative CSF Herpes I DNA (PCR) Negative CSF Herpes II DNA (PCR) Negative Vancomycin Trough CMV Specimen Source Csf CMV DNA Quant PCR Negative EBV Source Csf 05/10/18 05/11/18 05/11/18 21:30 07:00 07:00 WBC 9.3 RBC 3.30 L Hgb 10.7 L Hct 31.1 L MCV 94.3 MCH 32.5 MCHC 34.5 RDW 12.6 Plt Count 498 H MPV 6.8 L Neut % (Auto) 50.4 Lymph % (Auto) 34.5 Glynn % (Auto) 10.9 H Eos % (Auto) 3.1 Baso % (Auto) 1.1 Neut # (Auto) 4.7 Lymph # (Auto) 3.2 Glynn # (Auto) 1.0 H Eos # (Auto) 0.3 Baso # (Auto) 0.1 WBC Differential . Differential Comment Auto diff final Sodium 141 Potassium 4.1 Chloride 104 Carbon Dioxide 28.5 Anion Gap 9 BUN 8 Creatinine 0.40 L Estimated GFR Greater than 89 Random Glucose 80 Calcium 9.2 Phosphorus 3.5 Magnesium 2.1 CSF EBV DNA (PCR) CSF Herpes I DNA (PCR) CSF Herpes II DNA (PCR) Vancomycin Trough 6.5 CMV Specimen Source CMV DNA Quant PCR EBV Source Microbiology 05/08/18 01:25 Blood - Peripheral Aerobic Blood Culture - Preliminary No growth in 3 days 05/08/18 01:25 Blood - Peripheral Anaerobic Blood Culture - Preliminary No growth in 3 days 05/08/18 01:35 Blood - Peripheral Aerobic Blood Culture - Preliminary No growth in 3 days 05/08/18 01:35 Blood - Peripheral Anaerobic Blood Culture - Preliminary No growth in 3 days 05/07/18 18:48 Blood - Peripheral Aerobic Blood Culture - Preliminary No growth in 4 days 05/07/18 18:48 Blood - Peripheral Anaerobic Blood Culture - Preliminary No growth in 4 days 05/07/18 18:40 Blood - Peripheral Aerobic Blood Culture - Preliminary No growth in 4 days 05/07/18 18:40 Blood - Peripheral Anaerobic Blood Culture - Preliminary No growth in 4 days 05/08/18 00:43 Lumbar Puncture Gram Stain - Final 05/08/18 00:43 Lumbar Puncture CSF Culture - Final No growth in 72 hours - Procedures LP Assessment and Plan - Plan Acute encephalopathy- resolved. MRI brain with no acute infarct and EEG normal s/p LP- CSF cultures and blood cultures negative so far. VZV PCR pending. IV Vancomycin and Rocephin discontinued. Continued on IV Acyclovir. Neurology following, appreciate assistance. Acute psychosis Psych consult appreciated, additionally recommended for inpatient psychiatric admission however upon reevaluation today psychiatry is cleared patient for discharge to home on clonazepam 0.5 mg p.o. every 8 hours and continuation of Zyprexa twice daily. Discussed Condition With: patient, son, nursing staff, Dr. Cobb
[2018-05-11 23:02] LABS: Enterovirus (PCR)Source CSF; Enterovirus RNA Qual (PCR) Negative (Negative)
[2018-05-12 19:54] LABS: Ceruloplasmin 34 mg/dL (18-53)
[2018-05-13 11:52] LABS: Varicella-Zoster V DNA PCR <500 (<500 copies)
== END 2018-05-11 16:30 | disposition home or self-care (01) ==
LOC: NEPD 17:09 → NEDA 23:23 → N03 05-08 00:08 → N05 05-08 16:49
PROVIDERS: ADMIT Family Medicine; ATTEND Family Medicine